=== PATIENT | female | born 1935 | race Caucasian/White ===

== ENCOUNTER 2018-03-02 09:11 | Observation (INO) ==
[2018-03-02] MEDS ORDERED: IOPAMIDOL 100 ML BOTTLE IV ONE (09:12)
[2018-03-02 10:20] LABS: Basophils # (Auto) 0 K/mcL (0.0-0.3); Basophils % (Auto) 0.4 % (0.0-2.0); Eosinophils # (Auto) 0.2 K/mcL (0.0-0.7); Eosinophils % (Auto) 2.7 % (0.0-7.0); Granulocytes % (Auto) 72.7 % (38.0-78.0); Lymphocytes # (Auto) 1.3 K/mcL (1.5-4.8); Lymphocytes % (Auto) 17.1 % (15.5-49.0); Mean Cell Volume 90.2 fL (80.0-100.0); Mean Corpuscular HGB Conc 33.5 g/dL (31.0-36.0); Mean Corpuscular Hemoglobin 30.2 pg (26.0-34.0); Monocytes # (Auto) 0.5 K/mcL (0.1-0.9); Monocytes % (Auto) 7.1 % (1.0-12.0); Platelet Count 204 K/mcL (140-440); RBC 4.11 M/mcL (4.00-5.20); Red Cell Distribution Width 13.8 % (11.5-14.5)
[2018-03-02] MEDS ORDERED: NITROFURANTOIN SR 100 MG CAPSULE PO ONE (10:25)
[2018-03-02 10:40] LABS: ALT/SGPT 14 U/l (0-40); Albumin 3.9 gm/dL (3.2-5.2); Albumin/Globulin Ratio 1.3 (1.0-2.3); Alkaline Phosphatase 60 U/L (39-117); Amylase 44 U/L (28-100); Blood Urea Nitrogen 10 mg/dl (8-23); C-Reactive Protein 5.7 mg/dl (0.0-0.8); Lipase 26 U/L (7-60)
[2018-03-02 11:01] LABS: Appearance,Urine HAZY; Bacteria,Urine FEW /hpf (0); Bilirubin,Urine NEG (NEG); Color,Urine YELLOW; Glucose,Urine (UA) NEGATIVE (NEG); Leukocyte Esterase,Urine 75 /uL (NEG); Mucus,Urine MOD /hpf (0); Protein,Urine NEG (NEG); Specific Gravity,Urine 1.013 (1.000-1.035); Urine Blood NEG mg/dL (<0.03); Urine RBC < 1 /hpf (0-1); Urine Squamous Epithelial Cell < 1 /hpf (0-4); Urine Transitional Epi Cells < 1 /hpf (0-2); Urine WBC 1 /hpf (0-4); Urobilinogen,Urine NEG (NEG)
--- NOTE | 2018-03-02 12:01 | Cat Scan Report ---
CLINICAL INFORMATION: Lower abdominal pain COMPARISON: 06/02/2011 TECHNIQUE: Following enteric contrast, 80 cc of Isovue-300 were injected intravenously, and 60 seconds later, 0.625 mm helical slices were obtained from the mid heart through the subtrochanteric regions. Following reconstruction, 2.5 mm sagittal, coronal and axial reformatted images were processed and reviewed at bone, lung and soft tissue windows. Five minutes later, 0.625 mm helical slices were obtained from the mid heart through the kidneys and viewed at soft tissue windows.The exam was performed using radiation dose optimization techniques including, but not limited to, automated exposure control, adjustment of the mA and/or kV according to patient size and use of iterative reconstruction technique. FINDINGS: Lung bases show mild scattered fibrotic change which has progressed from previous study. No effusion. The visualized heart is mildly enlarged. Small hiatal hernia noted Images should the abdomen show liver to be unremarkable. Gallbladder is surgically absent. Common bile duct is slightly dilated - 8 mm both post cholecystectomy state. It is unchanged. The pancreas, both kidneys, adrenal glands, and spleen are normal. Aorta is normal in contour and caliber with scattered atherosclerotic plaque. Aortic branches demonstrate scattered plaque, but no definite stenoses. No free air, free fluid or adenopathy. Images reviewed the pelvis show urinary bladder to be normal. Sternotomy/nephrectomy changes are noted. There is moderate diverticulitis involving the distal one half of the sigmoid colon. In this region, there is moderate wall thickening inflamed diverticuli and phlegmon in the adjacent perisigmoid fat. No abscess, fistula or other complication. The remaining colon small bowel and stomach are grossly normal. Appendectomy changes acknowledged. Bone windows show degenerative changes in lumbar spine IMPRESSION: 1. Moderate diverticulitis involving the distal one half of the sigmoid colon. No abscess, fistula or other complication. 2. Mild dilatation of the common bile duct compatible with post cholecystomy state - stable 3. Mild interstitial fibrosis in the lung bases suggesting remote history of infection or aspiration. This has progressed. No acute disease evident 4. small hiatal hernia Interpreted and Authenticated by: Darrell Blackwell 03/02/18
--- NOTE | 2018-03-02 12:25 | Emergency Department Note ---
Abdominal Pain HPI - General Chief Complaint: Abdominal Pain Stated Complaint: abdominal pain Time Seen by Provider: 03/02/18 09:39 Source: patient Mode of arrival: ambulatory Limitations: no limitations - History of Present Illness HPI Narrative: The patient is an 82-year-old female who presents today with a 2 day history of abdominal pain. She reports that she is also started to have jellylike stools that began yesterday. She's had decreased appetite and energy level. She denies any nausea or vomiting. Reports that she seen traces of blood in her stool and states that she's had a least 10 episodes of this jellylike substance. She does have a history of diverticulitis but states that it doesn' t feel like that. Denies any fevers states that she always has chills. Rates the pain as a 9 out of 10 on the pain scale. Reports that she does have some discomfort when is going to the bathroom. Denies any dysuria specifically.She had blood work done yesterday at [facility] but has not had the results back. - Related Data Home Medications Medication Instructions Recorded Confirmed [place] TOPICAL PRN 06/08/17 02/20/18 aspirin 81 mg tablet,delayed 81 mg PO QDAY 06/08/17 02/20/18 release azelastine 137 mcg (0.1 %) nasal 2 spray INTRANASAL QDAY ml 06/08/17 02/20/18 spray aerosol blood sugar diagnostic strips See Dose Instructions .ROUTE 06/08/17 02/20/18 .MEDSUPPLY #20 each blood-glucose meter kit See Dose Instructions .ROUTE 06/08/17 02/20/18 .MEDSUPPLY #1 each carbidopa 10 mg-levodopa 100 mg 1 tab PO QDAY tab 06/08/17 02/20/18 tablet carboxymethylcellulose sodium 0.5 1 drp OPHTHALMIC QID PRN ml 06/08/17 02/20/18 % eye drops cetirizine 10 mg tablet 10 mg PO QHS tab 06/08/17 02/20/18 cholecalciferol (vitamin D3) 2,000 2,000 unit PO QDAY cap 06/08/17 02/20/18 unit capsule diclofenac 1 % topical gel 2 g TOPICAL .Q4-6H PRN g 06/08/17 02/20/18 docusate sodium PO QDAY 06/08/17 02/20/18 enalapril maleate 5 mg tablet 5 mg PO HS tab 06/08/17 02/20/18 epinephrine 0.3 mg/0.3 mL 0.3 mg IM ONCE 06/08/17 02/20/18 injection, auto-injector fluticasone 110 mcg/actuation HFA 2 puff INHALATION BID 06/08/17 02/20/18 aerosol inhaler hydrocodone 5 mg-acetaminophen 325 1 tab PO Q4H PRN 06/08/17 02/20/18 mg tablet lancets See Dose Instructions .ROUTE 06/08/17 02/20/18 .MEDSUPPLY #50 each magnesium oxide 400 mg tablet 400 mg PO BID tab 06/08/17 02/20/18 miscellaneous medical supply misc See Dose Instructions .ROUTE 06/08/17 02/20/18 .MEDSUPPLY #1 each multivitamin tablet 1 tab PO QDAY 06/08/17 02/20/18 nabumetone 500 mg tablet 500 mg PO BID PRN 06/08/17 02/20/18 nitroglycerin 0.4 mg sublingual 0.4 mg SUBLINGUAL Q5-15M PRN 06/08/17 02/20/18 tablet nystatin 100,000 unit/gram topical 1 applic TOPICAL BID PRN 06/08/17 02/20/18 powder omeprazole 20 mg capsule,delayed 20 mg PO QDAY 06/08/17 02/20/18 release polyethylene glycol 3350 17 17 g PO QHS PRN g 06/08/17 02/20/18 gram/dose oral powder potassium chloride PO BID 06/08/17 02/20/18 Bifidobacterium infantis 4 mg 4 mg PO QDAY 06/14/17 02/20/18 capsule alpha lipoic acid 300 mg capsule 300 mg PO QDAY 06/14/17 02/20/18 gabapentin 100 mg capsule 300 mg PO BID cap 06/14/17 02/20/18 pravastatin 80 mg tablet 40 mg PO QHS tab 08/22/17 02/20/18 spironolactone 25 mg tablet 12.5 mg PO QDAY tab 08/22/17 02/20/18 albuterol sulfate HFA 90 2 puff INHALATION QDAY PRN g 02/20/18 02/20/18 mcg/actuation aerosol inhaler calcium carbonate-vitamin D3 600 1 cap PO BID cap 02/20/18 02/20/18 mg calcium-200 unit capsule omega 4-pkb-uyh-fish oil 1,000 mg cap PO 02/20/18 02/20/18 (120 mg-180 mg) capsule Allergies Allergy/AdvReac Type Severity Reaction Status Date / Time penicillin G Allergy Severe rash Verified 03/02/18 10:46 Sulfa (Sulfonamide Allergy Severe lips Verified 03/02/18 10:46 Antibiotics) swelling Hydromorphone [From Dilaudid] Allergy Intermediate vomitting Verified 03/02/18 10:46 ipratropium [From Atrovent] Allergy Intermediate allergy to Verified 03/02/18 10 :46 nuts lansoprazole [From Prevacid] Allergy Intermediate dyspnea Verified 03/02/18 10: 46 morphine Allergy Intermediate Rash Verified 03/02/18 10:46 ciprofloxacin AdvReac Severe Nausea Verified 03/02/18 10:46 chlorpheniramine AdvReac Intermediate Unknown Verified 03/02/18 10:46 [From Deconamine] isosorbide [From Imdur] AdvReac Intermediate shortness Verified 03/02/18 10:46 of breath loratadine [From Tavist ND] AdvReac Intermediate Difficulty Verified 03/02/18 10 :46 Breathing nifedipine [From Procardia] AdvReac Intermediate Unknown Verified 03/02/18 10:46 ofloxacin [From Ocuflox] AdvReac Intermediate Unknown Verified 03/02/18 10:46 orphenadrine [From Norflex] AdvReac Intermediate Unknown Verified 03/02/18 10:46 pseudoephedrine AdvReac Intermediate Unknown Verified 03/02/18 10:46 [From Deconamine] nuts Allergy Severe swelling Uncoded 02/20/18 09:32 of throat william eye wash AdvReac Severe eyes burned Uncoded 02/20/18 09:32 cardiazen AdvReac Intermediate Unknown Uncoded 02/20/18 09:32 carzide AdvReac Intermediate unknown Uncoded 02/20/18 09:32 celebrez AdvReac Intermediate Unknown Uncoded 02/20/18 09:32 dipridamole AdvReac Intermediate Unknown Uncoded 02/20/18 09:32 triplennamine AdvReac Intermediate unknown Uncoded 02/20/18 09:32 Review of Systems All systems ED: reviewed and negative except as stated. Abdominal Pain PMH - Past Medical History Attestation: Yes: The following information was validated with the patient. Medical history: Reports: arthritis, asthma, cancer (Skin), COPD, CVA, DM (Type II currently on no medications (February 2018).), GERD (With Schatzki's ring), hypertension, obesity, valvular heart disease (Mitral regurg (presumptive; described by pt)), other (Diverticulitis. DENIES PUD.). Denies: coronary artery disease, myocardial infarction, thyroid disease - Social History Smoking status: Never smoker Alcohol use: Reports: None Drug use: Reports: none. Denies: marijuana Physical Exam Limitations: no limitations General appearance: alert Head: atraumatic Eye: Present: normal appearance ENT: normal exam Chest: Present: normal inspection, symmetric chest wall rise Respiratory: Present: normal lung sounds bilaterally Cardiovascular: Present: regular rate, normal rhythm Abdominal: Present: soft, tenderness, normal bowel sounds. Absent: guarding, rebound Abdominal tenderness: Present: diffuse Rectal: Present: normal inspection, normal rectal tone, heme (-) stool. Absent : hemorrhoids Extremities: Present: normal inspection, full ROM Neurological: Present: alert, oriented X3 Psychiatric: Present: normal affect, normal mood Skin: Present: warm, dry Course Course Narrative: The patient presents with abdominal pain. Lab work was ordered and urinalysis obtained. Urinalysis did come back positive for moderate leukocytes. She is describing 9 out of 10 pain but doesn't seem to be in not acute of pain on exam. Due to her history of diverticulitis will get a CT scan to rule out a recurrence. Stool guaiac was negative - Reevaluation(s) Reevaluation #1: Reevaluated the patient. States that the pain is [address] came back showing moderate diverticulitis without abscess or fistula. Due to patient's age, lives alone and comorbidities will admit her to the hospital for IV fluids , antibiotics and pain control. She was started on IV metronidazole and ceftriaxone here. She does have an allergy to penicillins and sulfa Vital Signs Temperature 97.6 F 03/02/18 09:13 Pulse Rate 82 03/02/18 09:13 Respiratory Rate 18 03/02/18 09:13 Blood Pressure 135/84 03/02/18 09:13 Pulse Oximetry (%) 94 03/02/18 09:13 Temperature 97.6 F 03/02/18 09:13 Pulse Rate 82 03/02/18 09:13 Respiratory Rate 18 03/02/18 09:13 Blood Pressure 135/84 03/02/18 09:13 Pulse Oximetry (%) 94 03/02/18 09:13 Abdominal Pain - MDM Narrative Medical decision making narrative: 82-year-old with acute urinary tract infection in the setting of moderate diverticulitis. Decreased oral intake and increased pain. Will admit for IV fluids, antibiotics and pain control - Lab Data Lab results reviewed: Yes I reviewed the patient's lab results. Result diagrams: 03/02/18 09:50 03/02/18 09:50 Lab Results 03/02/18 03/02/18 03/02/18 Range/Units 09:50 09:50 10:06 WBC 7.8 (4.5-11.0) K/mcL RBC 4.11 (4.00-5.20) M/mcL Hgb 12.4 (12.0-15.0) g/dL Hct 37.1 (36.0-48.0) % POC Hct 37.0 (36.0-48.0) % MCV 90.2 (80.0-100.0) fL MCH 30.2 (26.0-34.0) pg MCHC 33.5 (31.0-36.0) g/dL RDW 13.8 (11.5-14.5) % Plt Count 204 (140-440) K/mcL MPV 8.5 (7.4-10.4) fL Gran % 72.7 (38.0-78.0) % Lymph % (Auto) 17.1 (15.5-49.0) % [place] % (Auto) 7.1 (1.0-12.0) % Eos % (Auto) 2.7 (0.0-7.0) % Baso % (Auto) 0.4 (0.0-2.0) % Gran # 5.6 (1.8-8.0) K/mcL Lymph # (Auto) 1.3 L (1.5-4.8) K/mcL [place] # (Auto) 0.5 (0.1-0.9) K/mcL Eos # (Auto) 0.2 (0.0-0.7) K/mcL Baso # (Auto) 0 (0.0-0.3) K/mcL POC Sodium 138 (133-145) mmol/L Sodium 138 (133-145) mmol/L POC Potassium 4.3 (3.3-5.1) mmol/L Potassium 4.5 (3.3-5.1) mmol/L POC Chloride 102 (96-108) mmol/L Chloride 101 (96-108) mmol/L Carbon Dioxide 26 (22-30) mmol/L POC Total CO2 25 (22-30) mmol/L Anion Gap 11.0 (8-16) POC BUN 11 (8-23) mg/dl BUN 10 (8-23) mg/dl Creatinine 0.7 (0.6-1.1) mg/dl POC Creatinine 0.6 (0.6-1.1) mg/dl GFR Calculation 81 Glucose 107 H (70-105) mg/dL POC Glucose 107 H (70-105) mg/dL Calcium 9.7 (8.6-10.4) mg/dl POC WB Ioniz Calcium 1.15 L (1.16-1.32) mmol/L Total Bilirubin 0.5 (0.0-1.0) mg/dL AST 21 (0-37) U/l ALT 14 (0-40) U/l Alkaline Phosphatase 60 (39-117) U/L C-Reactive Protein 5.7 H (0.0-0.8) mg/dl Total Protein 6.8 (5.9-8.4) gm/dL Albumin 3.9 (3.2-5.2) gm/dL Globulin 2.9 (2.2-3.7) gm/dL Albumin/Globulin Ratio 1.3 (1.0-2.3) Amylase 44 (28-100) U/L Lipase 26 (7-60) U/L Urine Color Yellow Urine Appearance Hazy Urine pH 7.0 (5.0-9.0) Ur Specific [place] 1.013 (1.000-1.035) Urine Protein Neg (NEG) mg/dL Urine Glucose (UA) Negative (NEG) mg/dL Urine Ketones Neg (NEG) mg/dL Urine Occult Blood Neg (<0.03) mg/dL Urine Nitrate Neg (NEG) Urine Bilirubin Neg (NEG) mg/dL Urine Urobilinogen Neg (NEG) mg/dL Ur Leukocyte Esterase 75 A (NEG) /uL Urine RBC < 1 (0-1) /hpf Urine WBC 1 (0-4) /hpf Ur Squamous Epith Cells < 1 (0-4) /hpf Ur Transition Epith Cell < 1 (0-2) /hpf Urine Bacteria Few A (0) /hpf Urine Mucus Mod (0) /hpf Ur Culture Indicated? Yes - Radiology Data Radiology results reviewed: Yes I reviewed the patient's radiology results. Disposition Pt seen by IT SUPPORT SPECIALIST/PA only: No Clinical Impression: Diverticulitis, UTI (urinary tract infection) Disposition: Xfer As Inpt ([facility]) Condition: Good Referrals: Raleigh Castro MD [Primary Care Provider] -
[2018-03-02] MEDS ORDERED: metroNIDAZOLE 500 MG/100 ML BAG IV SCH (12:45)
[2018-03-02] MEDS ORDERED: cefTRIAXone 2 GM VIAL IV SCH (12:45)
[2018-03-02] MEDS ORDERED: 0.9 % SODIUM CHLORIDE 1,000 ML IV SCH (13:15)
[2018-03-02] MEDS ORDERED: NITROGLYCERIN 0.4 MG TAB.SUBL SL PRN (15:57)
[2018-03-02] MEDS ORDERED: ACETAMINOPHEN 325 MG TABLET PO PRN (15:57)
[2018-03-02] MEDS ORDERED: ALBUTEROL SULFATE 2.5 MG/3 ML NEBULIZER NEB PRN (15:57)
[2018-03-02] MEDS ORDERED: ONDANSETRON 4 MG/2 ML VIAL IV PRN (15:57)
--- NOTE | 2018-03-02 19:29 | Internal Med History&Physical ---
Medical - H&P: HPI Patient information: Note initiated : 03/02/18 at 7:27 pm Service Date, if different from initiated Date: [] Patient: Manisha Lynch a 82 y/o F admitted on 03/02/18 for abdominal pain. Chief Complaint: [] History of present illness: Ms. Lynch is a 82 year old F with h/o diverticulitis int he past presents to the ER with complaints of abdominal pain from this Monday pain located in lower abdomen, severe intermittent to constant in nature, waxing and waning, non radiating, associated with stools, which are jelly like, mixed with some mucous? and specks of blood. The patient symptoms progressively worsened over the last 3 days and she was advised to come to the ER for further evaluation. The patient notes increased fatigue and some chills denies any other complaints. chr joint pains, chr headaches present. The patient in the ER was hemodynamically stable, afebrile, normal hb, wbc, chemistry, ua some leuk esterase. CT abdomen pelvis shows diverticuitis, no abscess Pt admitted to hospital for further management h/o colonic polyps, notes non cancerous no FH of colon cancer. All systems: reviewed and no additional remarkable complaints except as stated ( as per HPI rest negative.) Medical - H&P: PMH Medical history: Medical History (Last Reviewed 02/20/18 @ 10:03 by MEI Hairston) Phlebitis and thrombophlebitis of superficial vessels of right lower extremity ( Chronic) Obstructive sleep apnea (Chronic) COPD (chronic obstructive pulmonary disease) (Chronic) Acute diverticulitis (Chronic) Sleep-related hypoventilation (Chronic) Schatzki's ring (Chronic) Hiatal hernia (Chronic) History of constipation (Chronic) Duodenal papillary stenosis (Chronic) Allergy to bee sting (Chronic) Hyperplastic colon polyp (Chronic) Right knee meniscal tear (Chronic ~07/2004) GERD (gastroesophageal reflux disease) (Chronic) 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) Hypertension (Chronic) Diabetes mellitus (Chronic) Asthma (Chronic) Skin cancer (Chronic) Stroke (Chronic) Surgical history: Past Surgical History (Last Reviewed 02/20/18 @ 10:03 by MEI Hairston) History of appendectomy (Chronic) History of cholecystectomy (Chronic) History of colonoscopy (Chronic 08/23/07) History of esophagogastroduodenoscopy (EGD) (Chronic 03/23/17) History of left knee replacement (Chronic) History of tonsillectomy (Chronic) History of total hysterectomy (Chronic ~1969) History of total right knee replacement (Chronic ~12/2005) History of ventral hernia repair (Chronic ~04/2003) Family history: reviewed and not pertinent Pertinent family history: Family History (Last Reviewed 02/20/18 @ 10:03 by MEI Hairston) Other No pertinent family history Medical - H&P: Meds Home Medications Medication Instructions Recorded Confirmed Type aspirin 81 mg tablet,delayed 81 mg PO QDAY 06/08/17 03/02/18 History release azelastine 137 mcg (0.1 %) nasal 2 spray INTRANASAL QDAY ml 06/08/17 03/02/18 History spray aerosol carbidopa 10 mg-levodopa 100 mg 1 tab PO QDAY tab 06/08/17 03/02/18 History tablet carboxymethylcellulose sodium 0.5 1 drp OPHTHALMIC QID PRN ml 06/08/17 History % eye drops cetirizine 10 mg tablet 10 mg PO QHS tab 06/08/17 03/02/18 History cholecalciferol (vitamin D3) 2,000 2,000 unit PO QDAY cap 06/08/17 03/02/18 History unit capsule diclofenac 1 % topical gel 2 g TOPICAL Q4-6HP PRN g 06/08/17 03/02/18 History docusate sodium 300 mg PO QDAY 06/08/17 03/02/18 History enalapril maleate 5 mg tablet 5 mg PO HS tab 06/08/17 03/02/18 History epinephrine 0.3 mg/0.3 mL 0.3 mg IM PRN PRN 06/08/17 03/02/18 History injection, auto-injector fluticasone 110 mcg/actuation HFA 2 puff INHALATION BID 06/08/17 03/02/18 History aerosol inhaler hydrocodone 5 mg-acetaminophen 325 1 tab PO Q4HP PRN 06/08/17 03/02/18 History mg tablet magnesium oxide 400 mg tablet 400 mg PO BID tab 06/08/17 03/02/18 History multivitamin tablet 1 tab PO QDAY 06/08/17 03/02/18 History nabumetone 500 mg tablet 500 mg PO BIDP PRN 06/08/17 03/02/18 History nitroglycerin 0.4 mg sublingual 0.4 mg SUBLINGUAL Q5-15M PRN 06/08/17 03/02/18 History tablet nystatin 100,000 unit/gram topical 1 applic TOPICAL BIDP PRN 06/08/17 03/02/18 History powder omeprazole 20 mg capsule,delayed 20 mg PO QDAY 06/08/17 03/02/18 History release polyethylene glycol 3350 17 17 g PO QHS PRN g 06/08/17 03/02/18 History gram/dose oral powder Bifidobacterium infantis 4 mg 4 mg PO QDAY 06/14/17 03/02/18 History capsule alpha lipoic acid 300 mg capsule 300 mg PO QDAY 06/14/17 03/02/18 History gabapentin 100 mg capsule 300 mg PO BID cap 06/14/17 03/02/18 History pravastatin 80 mg tablet 40 mg PO QHS tab 08/22/17 03/02/18 History spironolactone 25 mg tablet 12.5 mg PO QDAY tab 08/22/17 03/02/18 History albuterol sulfate HFA 90 2 puff INHALATION QDAY PRN g 02/20/18 03/02/18 History mcg/actuation aerosol inhaler calcium carbonate-vitamin D3 600 1 cap PO BID cap 02/20/18 03/02/18 History mg calcium-200 unit capsule omega 1-pvt-mfp-fish oil 1,000 mg 1 cap PO DAILY 02/20/18 03/02/18 History (120 mg-180 mg) capsule Allergies Allergy/AdvReac Type Severity Reaction Status Date / Time penicillin G Allergy Severe rash Verified 03/02/18 10:46 Sulfa (Sulfonamide Allergy Severe lips Verified 03/02/18 10:46 Antibiotics) swelling Hydromorphone [From Dilaudid] Allergy Intermediate vomitting Verified 03/02/18 10:46 ipratropium [From Atrovent] Allergy Intermediate allergy to Verified 03/02/18 10 :46 nuts lansoprazole [From Prevacid] Allergy Intermediate dyspnea Verified 03/02/18 10: 46 morphine Allergy Intermediate Rash Verified 03/02/18 10:46 ciprofloxacin AdvReac Severe Nausea Verified 03/02/18 10:46 chlorpheniramine AdvReac Intermediate Unknown Verified 03/02/18 10:46 [From Deconamine] isosorbide [From Imdur] AdvReac Intermediate shortness Verified 03/02/18 10:46 of breath loratadine [From Tavist ND] AdvReac Intermediate Difficulty Verified 03/02/18 10 :46 Breathing nifedipine [From Procardia] AdvReac Intermediate Unknown Verified 03/02/18 10:46 ofloxacin [From Ocuflox] AdvReac Intermediate Unknown Verified 03/02/18 10:46 orphenadrine [From Norflex] AdvReac Intermediate Unknown Verified 03/02/18 10:46 pseudoephedrine AdvReac Intermediate Unknown Verified 03/02/18 10:46 [From Deconamine] nuts Allergy Severe swelling Uncoded 02/20/18 09:32 of throat william eye wash AdvReac Severe eyes burned Uncoded 02/20/18 09:32 cardiazen AdvReac Intermediate Unknown Uncoded 02/20/18 09:32 carzide AdvReac Intermediate unknown Uncoded 02/20/18 09:32 celebrez AdvReac Intermediate Unknown Uncoded 02/20/18 09:32 dipridamole AdvReac Intermediate Unknown Uncoded 02/20/18 09:32 triplennamine AdvReac Intermediate unknown Uncoded 02/20/18 09:32 Medical - H&P: Exam - Constitutional Vitals: Temp Pulse Resp BP Pulse Ox 98.2 F 82 20 156/84 97 03/02/18 16:00 03/02/18 09:13 03/02/18 16:00 03/02/18 16:00 03/02/18 16:00 Exam: GENERAL: The patient is a well-developed, well-nourished in no apparent distress. Is alert and oriented x3. VITAL SIGNS: Reviewed and as noted elsewhere. HEENT: Head is normocephalic and atraumatic. Extraocular muscles are intact. Pupils are equal, round, and reactive to light. Nares appeared normal. Mouth appears any without lesions. Mucous membranes are moist. NECK: Normal to inspection, Supple, No lymphadenopathy or thyromegaly. LUNGS: Air entry equal on both sides, no wheezing, crackles or rhonchi noted. No accessory muscles of respiration HEART: Regular rate and rhythm normal, S1 and S2 heard, no Gallop, S3 or Rub Noted, No Gross murmur heard. ABDOMEN: Soft, significant tenderness in the hypogastric region, bowel tones present, no rigidity, EXTREMITIES: No cyanosis, clubbing, rash, lesions or edema. NEUROLOGIC: Cranial nerves II through XII are grossly intact. Motor and Sensory System Grossly Intact PSYCHIATRIC: Normal affect, Normal Mood. Appropriate Behavior. SKIN: No ulceration or wounds noted, No jaundice, No rash noted. Medical - H&P: Reslt - Labs CBC & Chem 7: 03/02/18 09:50 03/02/18 09:50 Labs: Short CBC 03/02/18 Range/Units 09:50 WBC 7.8 (4.5-11.0) K/mcL Hgb 12.4 (12.0-15.0) g/dL Hct 37.1 (36.0-48.0) % Plt Count 204 (140-440) K/mcL BMP 03/02/18 09:50 Sodium 138 Potassium 4.5 Chloride 101 Carbon Dioxide 26 BUN 10 Creatinine 0.7 Glucose 107 H Calcium 9.7 Liver Function 03/02/18 Range/Units 09:50 Total Bilirubin 0.5 (0.0-1.0) mg/dL AST 21 (0-37) U/l ALT 14 (0-40) U/l Alkaline Phosphatase 60 (39-117) U/L Albumin 3.9 (3.2-5.2) gm/dL Urine 03/02/18 Range/Units 10:06 Urine Color Yellow Urine Appearance Hazy Urine pH 7.0 (5.0-9.0) Ur Specific [place] 1.013 (1.000-1.035) Urine Protein Neg (NEG) mg/dL Urine Glucose (UA) Negative (NEG) mg/dL Medical - H&P: A/P - Narrative A/P Narrative: A/P Acute Diverticulitis COPD chr stable, HTN h/o CVA h/o DM NEEL Plan Admit to med surgy liquid diet IV rocephin and flagyl for now advance diet as tolerated Surgery to consult if patient clinically worsens resume home meds as appropriate prob list mentions DM, glucose well controlled for now, not on any DM meds DVT hep sq Diet liquid Full code Social History - Exercise physical activity: none - Tobacco smoking status: Never smoker - Alcohol alcohol intake frequency: does not drink - Substance use substance use type: does not use
[2018-03-02] MEDS: HYDROcodone/APAP 5/325MG TABLET PO PRN (19:36)
[2018-03-02] MEDS: HEPARIN 5,000 UNIT/ML VIAL SQ SCH (20:03)
[2018-03-02] MEDS: MAGNESIUM OXIDE 400 MG TABLET PO SCH (20:03)
[2018-03-02] MEDS: CALCIUM W/VIT D3 500 MG TABLET PO SCH (20:03)
[2018-03-02] MEDS: SIMVASTATIN 20 MG TABLET PO SCH (20:03)
[2018-03-02] MEDS: GABAPENTIN 300 MG CAPSULE PO SCH (20:03)
[2018-03-02] MEDS: CETIRIZINE 10 MG TABLET PO SCH (20:03)
[2018-03-02] MEDS: FLUTICASONE HFA 110MCG INHALER INH SCH (22:21)
[2018-03-02] MEDS: metroNIDAZOLE 500 MG/100 ML BAG IV SCH (22:21)
[2018-03-02] MEDS: 0.9 % SODIUM CHLORIDE 1,000 ML IV SCH (23:48)
[2018-03-02] MEDS: 0.9 % SODIUM CHLORIDE 10 ML SYRINGE IV SCH (23:48)
[2018-03-03] MEDS: 0.9 % SODIUM CHLORIDE 1,000 ML IV SCH ×2 (01:20→13:38)
[2018-03-03] MEDS: HYDROcodone/APAP 5/325MG TABLET PO PRN ×3 (02:13→21:09)
[2018-03-03] MEDS: metroNIDAZOLE 500 MG/100 ML BAG IV SCH ×3 (05:26→21:24)
[2018-03-03 05:35] LABS: Basophils # (Auto) 0 K/mcL (0.0-0.3); Basophils % (Auto) 0.7 % (0.0-2.0); Eosinophils # (Auto) 0.3 K/mcL (0.0-0.7); Eosinophils % (Auto) 7.5 % (0.0-7.0); Granulocytes % (Auto) 48.1 % (38.0-78.0); Lymphocytes # (Auto) 1.6 K/mcL (1.5-4.8); Lymphocytes % (Auto) 35.2 % (15.5-49.0); Mean Cell Volume 90.8 fL (80.0-100.0); Mean Corpuscular HGB Conc 33.9 g/dL (31.0-36.0); Mean Corpuscular Hemoglobin 30.8 pg (26.0-34.0); Monocytes # (Auto) 0.4 K/mcL (0.1-0.9); Monocytes % (Auto) 8.5 % (1.0-12.0); Platelet Count 199 K/mcL (140-440); Red Cell Distribution Width 13.4 % (11.5-14.5)
[2018-03-03] MEDS: 0.9 % SODIUM CHLORIDE 10 ML SYRINGE IV SCH ×3 (05:57→21:26)
[2018-03-03 06:10] LABS: ALT/SGPT 13 U/l (0-40); Albumin 3.3 gm/dL (3.2-5.2); Albumin/Globulin Ratio 1.3 (1.0-2.3); Alkaline Phosphatase 53 U/L (39-117); Bilirubin,Direct < 0.2 mg/dL (0.0-0.3); Blood Urea Nitrogen 8 mg/dl (8-23); Gamma Glutamyl Transpeptidase 11 U/L (5-36); Uric Acid 3.9 mg/dL (2.5-8.0)
[2018-03-03] MEDS: OMEPRAZOLE 20 MG CAPSULE PO SCH (07:14)
[2018-03-03] MEDS ORDERED: diphenhydrAMINE 50 MG/ML VIAL IV ONE (08:26)
[2018-03-03] MEDS ORDERED: methylPREDNISolone SOD SUCC 125 MG/2 ML VIAL IV ONE (08:27)
[2018-03-03] MEDS ORDERED: diphenhydrAMINE 50 MG/ML VIAL ONE (08:34)
[2018-03-03] MEDS ORDERED: ALBUTEROL SULFATE 2.5 MG/3 ML NEBULIZER NEB ONE (09:03)
--- NOTE | 2018-03-03 09:30 | XRay Report ---
CLINICAL INFORMATION: Dyspnea COMPARISON: 11/07/2017 FINDINGS: Moderate cardiomegaly has increased slightly. Mediastinum is unremarkable. Upper lobe pulmonary vessels are mildly distended and there is equivocal interstitial edema. Minor bibasilar airspace disease likely represent atelectasis. IMPRESSION: Mild CHF or volume overload. Interpreted and Authenticated by: Darrell Blackwell 03/03/18
[2018-03-03] MEDS: LISINOPRIL 5 MG TABLET PO SCH (09:42)
[2018-03-03] MEDS: SPIRONOLACTONE 25 MG TABLET PO SCH (09:42)
[2018-03-03] MEDS: MAGNESIUM OXIDE 400 MG TABLET PO SCH ×2 (09:42→21:07)
[2018-03-03] MEDS: CARBIDOPA/LEVODOPA 10/100 TABLET PO SCH (09:42)
[2018-03-03] MEDS: GABAPENTIN 300 MG CAPSULE PO SCH ×2 (09:42→21:07)
[2018-03-03] MEDS: CALCIUM W/VIT D3 500 MG TABLET PO SCH ×2 (09:42→21:08)
[2018-03-03] MEDS: HEPARIN 5,000 UNIT/ML VIAL SQ SCH ×2 (09:43→21:08)
[2018-03-03] MEDS: ASPIRIN 81 MG TAB.CHEW PO SCH (09:47)
[2018-03-03] MEDS: cefTRIAXone 2 GM VIAL IV SCH (12:58)
[2018-03-03] MEDS ORDERED: diphenhydrAMINE 50 MG/ML VIAL IV PRN (13:10)
--- NOTE | 2018-03-03 13:13 | Internal Med Progress Note ---
Medical - PN: Subj Patient information: Note initiated : 03/03/18 at 1:10 pm Service Date, if different from initiated Date: [] Patient: Manisha Lynch a 82 y/o F admitted on 03/02/18 for abdominal pain. Chief Complaint: [] Interval history: Ms. Lynch is a 82 year old F with h/o diverticulitis int he past presents to the ER with complaints of abdominal pain from this Monday pain located in lower abdomen, severe intermittent to constant in nature, waxing and waning, non radiating, associated with stools, which are jelly like, mixed with some mucous? and specks of blood. The patient symptoms progressively worsened over the last 3 days and she was advised to come to the ER for further evaluation. The patient notes increased fatigue and some chills denies any other complaints. chr joint pains, chr headaches present. The patient in the ER was hemodynamically stable, afebrile, normal hb, wbc, chemistry, ua some leuk esterase. CT abdomen pelvis shows diverticuitis, no abscess Pt admitted to hospital for further management h/o colonic polyps, notes non cancerous no FH of colon cancer. 03/03 Pt seen examined, this AM was doing well, she had breakfast and suddently felt sick, as if had no energy, short of breath, closing in her chest. Similar feeling as if she had eaten nut, the patient was very concerned. IV benadryl and IV solumedrol 125mg give. pt exam was unremarkable, hemodynamically stable, no wheeze, no stridor, no swelling of oropharygeal mucosa. Pt improved and was back to normal soon. feels some contaminant in breakfast may have caused the symptoms. She still has some abdominal pain, but much better, labs otherwise are stable Pertinent ROS: Denies headache, dizziness Denies chest pain, palpitations, Denies cough , present in AM shortness of breath present abdominal pain, no nausea or vomiting. - Constitutional Vitals: Vital Signs Temp Pulse Resp BP Pulse Ox 97.5 F 93 H 14 138/80 92 03/03/18 12:16 03/03/18 12:16 03/03/18 12:16 03/03/18 12:16 03/03/18 12:16 Period Temp Pulse Resp BP Sys/[place] Pulse Ox Last 24 Hr 97.2 F-98.2 F 58-93 14-24 138-173/67-85 92-100 Intake and Output 03/02/18 03/03/18 03/03/18 21:59 05:59 13:59 Intake Total 460 / 460 500 / 500 800 / 800 Output Total 875 / 875 850 / 850 1000 / 1000 Balance -415 / -415 -350 / -350 -200 / -200 Weight 214 lb 214 lb Patient Weight 03/04/18 05:59 Weight 214 lb Intake & Output: Intake & Output 03/02/18 03/03/18 03/03/18 21:59 05:59 13:59 Intake Total 460 / 460 500 / 500 800 / 800 Output Total 875 / 875 850 / 850 1000 / 1000 Balance -415 / -415 -350 / -350 -200 / -200 Weight 214 lb 214 lb Intake: IV 100 / 100 100 / 100 Oral 360 / 360 400 / 400 800 / 800 Output: Void Amount 875 / 875 850 / 850 1000 / 1000 Other: Meal Dinner Lunch Percent of Meal Consumed 25% 50% Feeding Ability Independent Exam: Constitutional; Afebrile, cooperative, alert, not in distress. Eyes- No icterus, , No periorbital swelling Ears- Ext ear normal, hearing normal to conversation. Neck- Midline trachea, supple Respiratory system: Air Entry equal on both sides, No crackles or wheezing, no rhonchi. CVS- Rate rhythm regular, S1,S2 heard, no gallop, no rub. 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 Medical - PN: Obj Da - Labs CBC & Chem 7: 03/03/18 04:30 03/03/18 04:30 Labs: Abnormal Lab Results 03/03/18 03/03/18 03/02/18 04:30 04:30 10:06 WBC 4.4 L RBC 3.80 L Hgb 11.7 L Hct 34.5 L Eos % (Auto) 7.5 H Lymph # (Auto) Anion Gap 7.0 L Glucose 120 H POC Glucose POC WB Ioniz Calcium C-Reactive Protein Ur Leukocyte Esterase 75 A Urine Bacteria Few A 03/02/18 03/02/18 09:50 09:50 WBC RBC Hgb Hct Eos % (Auto) Lymph # (Auto) 1.3 L Anion Gap Glucose 107 H POC Glucose 107 H POC WB Ioniz Calcium 1.15 L C-Reactive Protein 5.7 H Ur Leukocyte Esterase Urine Bacteria Meds: Medications Acetaminophen (Tylenol) 650 mg PO Q6HP PRN PRN Reason: PAIN/FEVER > 101 Hydrocodone Bitart/Acetaminophen ([place] 5/325mg) 1 tab PO Q4HP PRN PRN Reason: Pain Last Admin: 03/03/18 12:57 Dose: 1 tab Albuterol Sulfate (Ventolin) 2.5 mg NEB Q2HP PRN PRN Reason: Shortness Of Breath Last Admin: 03/03/18 09:00 Dose: 2.5 mg Aspirin (Aspirin) 81 mg PO DAILY [facility] Last Admin: 03/03/18 09:47 Dose: 81 mg Calcium/Vitamin D (Calcium W/Vit D3) 500 mg PO BID [facility] Last Admin: 03/03/18 09:42 Dose: 500 mg Carbidopa/Levodopa (Sinemet 10/100) 1 tab PO QDAY [facility] Last Admin: 03/03/18 09:42 Dose: 1 tab Ceftriaxone Sodium (Rocephin) 2 gm IV Q24H [facility] Last Admin: 03/03/18 12:58 Dose: 2 gm Cetirizine HCl (Zyrtec) 10 mg PO QHS [facility] Last Admin: 03/02/18 20:03 Dose: 10 mg Fluticasone Propionate (Flovent Hfa 110mcg) 2 puff INH BID [facility] Last Admin: 03/02/18 22:21 Dose: Not Given Gabapentin (Neurontin) 300 mg PO BID [facility] Last Admin: 03/03/18 09:42 Dose: 300 mg Heparin Sodium (Porcine) (Heparin) 5,000 unit SQ Q12 [facility] Last Admin: 03/03/18 09:43 Dose: 5,000 unit Metronidazole (Flagyl) 500 mg in 100 mls @ 100 mls/hr IV Q8H [facility] Last Admin: 03/03/18 05:26 Dose: 100 mls/hr Sodium Chloride (Sodium Chloride 0.9%) 1,000 mls @ 100 mls/hr IV .Q10H [facility] Last Admin: 03/03/18 01:20 Dose: 100 mls/hr Lisinopril (Zestril) 5 mg PO DAILY [facility] Last Admin: 03/03/18 09:42 Dose: 5 mg Magnesium Oxide (Magnesium Oxide) 400 mg PO BID [facility] Last Admin: 03/03/18 09:42 Dose: 400 mg Nitroglycerin (Nitrostat) 0.4 mg SL Q5M PRN PRN Reason: Angina Omeprazole (Prilosec) 20 mg PO QAMAC [facility] Last Admin: 03/03/18 07:14 Dose: 20 mg Ondansetron HCl (Zofran) 4 mg IV Q6HP PRN PRN Reason: Nausea And Vomiting Azelastine Hcl [ Azelastine Hcl] Nasal [place] 2 dose INH QDAY [facility] Carboxymethylcellulo se Sodium [Refresh Tears] Eye Drops 1 dose OU QIDP PRN PRN Reason: Dry Eyes Simvastatin (Zocor) 20 mg PO HS [facility] Last Admin: 03/02/18 20:03 Dose: 20 mg Sodium Chloride (Saline Flush) 10 ml IV Q8 [facility] Last Admin: 03/03/18 05:57 Dose: Not Given Spironolactone (Aldactone) 12.5 mg PO QDAY [facility] Last Admin: 03/03/18 09:42 Dose: 12.5 mg Medical - PN: A/P - Time Spent With Patient Total time spent is greater than 50% in coordination of care (as documented) at patient's floor/unit and/or counseling patient: - Narrative A/P Narrative: A/P Acute Diverticulitis COPD chr stable, HTN h/o CVA h/o DM NEEL 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
[2018-03-03] MEDS: FLUTICASONE HFA 110MCG INHALER INH SCH ×2 (14:08→21:13)
[2018-03-03] MEDS: SIMVASTATIN 20 MG TABLET PO SCH (21:07)
[2018-03-03] MEDS: CETIRIZINE 10 MG TABLET PO SCH (21:08)
[2018-03-04] MEDS: 0.9 % SODIUM CHLORIDE 1,000 ML IV SCH ×3 (00:10→08:34)
[2018-03-04] MEDS: metroNIDAZOLE 500 MG/100 ML BAG IV SCH ×2 (05:14→13:39)
[2018-03-04] MEDS: 0.9 % SODIUM CHLORIDE 10 ML SYRINGE IV SCH ×2 (05:17→13:39)
[2018-03-04] MEDS: OMEPRAZOLE 20 MG CAPSULE PO SCH (06:57)
[2018-03-04 07:16] LABS: Basophils # (Auto) 0 K/mcL (0.0-0.3); Basophils % (Auto) 0 % (0.0-2.0); Eosinophils # (Auto) 0 K/mcL (0.0-0.7); Eosinophils % (Auto) 0 % (0.0-7.0); Granulocytes % (Auto) 87.7 % (38.0-78.0); Lymphocytes # (Auto) 0.7 K/mcL (1.5-4.8); Lymphocytes % (Auto) 7.2 % (15.5-49.0); Mean Cell Volume 91.5 fL (80.0-100.0); Mean Corpuscular Hemoglobin 30.2 pg (26.0-34.0); Monocytes # (Auto) 0.5 K/mcL (0.1-0.9); Monocytes % (Auto) 5.1 % (1.0-12.0); Platelet Count 213 K/mcL (140-440); RBC 3.78 M/mcL (4.00-5.20); Red Cell Distribution Width 13.4 % (11.5-14.5)
[2018-03-04 08:03] LABS: ALT/SGPT 12 U/l (0-40); Albumin 3.4 gm/dL (3.2-5.2); Albumin/Globulin Ratio 1.4 (1.0-2.3); Alkaline Phosphatase 54 U/L (39-117); Bilirubin,Direct < 0.2 mg/dL (0.0-0.3); Blood Urea Nitrogen 12 mg/dl (8-23); Gamma Glutamyl Transpeptidase 12 U/L (5-36)
[2018-03-04] MEDS: CALCIUM W/VIT D3 500 MG TABLET PO SCH (08:35)
[2018-03-04] MEDS: LISINOPRIL 5 MG TABLET PO SCH (08:35)
[2018-03-04] MEDS: SPIRONOLACTONE 25 MG TABLET PO SCH (08:35)
[2018-03-04] MEDS: MAGNESIUM OXIDE 400 MG TABLET PO SCH (08:35)
[2018-03-04] MEDS: CARBIDOPA/LEVODOPA 10/100 TABLET PO SCH (08:35)
[2018-03-04] MEDS: GABAPENTIN 300 MG CAPSULE PO SCH (08:35)
[2018-03-04] MEDS: ASPIRIN 81 MG TAB.CHEW PO SCH (08:35)
[2018-03-04] MEDS: FLUTICASONE HFA 110MCG INHALER INH SCH (08:36)
[2018-03-04] MEDS: HEPARIN 5,000 UNIT/ML VIAL SQ SCH (08:36)
[2018-03-04] MEDS: cefTRIAXone 2 GM VIAL IV SCH (12:08)
--- NOTE | 2018-03-04 12:11 | Discharge Summary ---
Medical - DS: Prov Patient information: Note initiated : 03/04/18 at 12:06 pm Service Date, if different from initiated Date: [] Patient: Manisha Lynch 82 y/o F admitted on 03/02/18 for Abdominal Pain/ Diverticulitis. Chief Complaint: [] Date of admission: 03/02/18 15:48 Discharge date: 03/04/18 Primary care physician: Raleigh Castro Admitting clinician: Jose Sepulveda Consults: 03/02/18 12:40 Consult to Physician [CONS] Stat Comment: Consulting Provider: Jose Sepulveda Reason For Exam: Physician to Consult Discharging clinician: Jose Sepulveda Medical - DS: Meds - Discharge Medications Prescriptions: Cefdinir 300 mg PO BID #10 cap metroNIDAZOLE [Metronidazole] 500 mg PO TID #15 tab Active and Home Medications: Home Medications aspirin 81 mg tablet,delayed release 81 mg PO QDAY 06/08/17 [History Confirmed 03/02/18 Last Taken Unknown] azelastine 137 mcg (0.1 %) nasal spray aerosol 2 spray INTRANASAL QDAY ml 06/08 [History Confirmed 03/02/18 Last Taken Unknown] carbidopa 10 mg-levodopa 100 mg tablet 1 tab PO QDAY tab 06/08/17 [History Confirmed 03/02/18 Last Taken Unknown] carboxymethylcellulose sodium 0.5 % eye drops 1 drp OPHTHALMIC QID PRN ml 06/08 [History Confirmed 03/02/18 Last Taken Unknown] cetirizine 10 mg tablet 10 mg PO QHS tab 06/08/17 [History Confirmed 03/02/18 Last Taken Unknown] cholecalciferol (vitamin D3) 2,000 unit capsule 2,000 unit PO QDAY cap [History Confirmed 03/02/18 Last Taken Unknown] diclofenac 1 % topical gel 2 g TOPICAL Q4-6HP PRN g 06/08/17 [History Confirmed 03/02/18 Last Taken Unknown] docusate sodium 300 mg PO QDAY 06/08/17 [History Confirmed 03/02/18 Last Taken Unknown] enalapril maleate 5 mg tablet 5 mg PO HS tab 06/08/17 [History Confirmed Last Taken Unknown] epinephrine 0.3 mg/0.3 mL injection, auto-injector 0.3 mg IM PRN PRN 06/08/17 [ History Confirmed 03/02/18 Last Taken Unknown] fluticasone 110 mcg/actuation HFA aerosol inhaler 2 puff INHALATION BID [History Confirmed 03/02/18 Last Taken Unknown] hydrocodone 5 mg-acetaminophen 325 mg tablet 1 tab PO Q4HP PRN 06/08/17 [ History Confirmed 03/02/18 Last Taken Unknown] magnesium oxide 400 mg tablet 400 mg PO BID tab 06/08/17 [History Confirmed Last Taken Unknown] multivitamin tablet 1 tab PO QDAY 06/08/17 [History Confirmed 03/02/18 Last Taken Unknown] nabumetone 500 mg tablet 500 mg PO BIDP PRN 06/08/17 [History Confirmed Last Taken Unknown] nitroglycerin 0.4 mg sublingual tablet 0.4 mg SUBLINGUAL Q5-15M PRN 06/08/17 [ History Confirmed 03/02/18 Last Taken Unknown] nystatin 100,000 unit/gram topical powder 1 applic TOPICAL BIDP PRN 06/08/17 [ History Confirmed 03/02/18 Last Taken Unknown] omeprazole 20 mg capsule,delayed release 20 mg PO QDAY 06/08/17 [History Confirmed 03/02/18 Last Taken Unknown] polyethylene glycol 3350 17 gram/dose oral powder 17 g PO QHS PRN g 06/08/17 [ History Confirmed 03/02/18 Last Taken Unknown] Bifidobacterium infantis 4 mg capsule 4 mg PO QDAY 06/14/17 [History Confirmed 03/02/18 Last Taken Unknown] alpha lipoic acid 300 mg capsule 300 mg PO QDAY 06/14/17 [History Confirmed Last Taken Unknown] gabapentin 100 mg capsule 300 mg PO BID cap 06/14/17 [History Confirmed Last Taken Unknown] pravastatin 80 mg tablet 40 mg PO QHS tab 08/22/17 [History Confirmed 03/02/18 Last Taken Unknown] spironolactone 25 mg tablet 12.5 mg PO QDAY tab 08/22/17 [History Confirmed Last Taken Unknown] albuterol sulfate HFA 90 mcg/actuation aerosol inhaler 2 puff INHALATION QDAY PRN g 02/20/18 [History Confirmed 03/02/18 Last Taken Unknown] calcium carbonate-vitamin D3 600 mg calcium-200 unit capsule 1 cap PO BID cap 02/20/18 [History Confirmed 03/02/18 Last Taken Unknown] omega 5-ych-rjr-fish oil 1,000 mg (120 mg-180 mg) capsule 1 cap PO DAILY [History Confirmed 03/02/18 Last Taken Unknown] Medical - DS: Hosp Hospital course: Ms. Lynch is a 82 year old F with h/o diverticulitis int he past presented to the ER with complaints of abdominal pain from this Monday pain located in lower abdomen, severe intermittent to constant in nature, waxing and waning, non radiating, associated with stools, which are jelly like, mixed with some mucous? and specks of blood. The patient symptoms progressively worsened over the last 3 days and she was advised to come to the ER for further evaluation. The patient in the ER was hemodynamically stable, afebrile, normal hb, wbc, chemistry, ua some leuk esterase. CT abdomen pelvis shows diverticuitis, no abscess Pt admitted to hospital for further management h/o colonic polyps, notes non cancerous no FH of colon cancer. Diverticulitis- Uncomplicated, treated with bowel rest, IV antibiotics, responded to treatment, Patient resumed oral diet, while in the hospital was able to tolerate same well. her lab work was stable. She will be discharged home with oral cefdinir (tolerated rocephin well) and oral flagyl for another 5 days. She is advised to follow up with PCP and get referral to GI for colonoscopy in 4 -6 weeks for further evaluation. Discharge diagnosis: Diverticulitis - Time Spent with Patient Total time spent providing and/or coordinating discharge services: Greater than 30 minutes Medical - DS: Exam - Constitutional Vitals: Vital Signs Temp Pulse Resp BP BP Pulse Ox 03/04/18 11:24 97.6 F 77 20 144/75 96 03/04/18 06:47 97.7 F 69 16 138/61 96 03/04/18 04:00 97.5 F 85 18 104/56 94 03/03/18 23:42 97.3 F 67 18 109/48 93 03/03/18 19:28 97.4 F 62 18 113/68 92 03/03/18 18:44 96 03/03/18 15:45 97.6 F 78 18 135/62 93 03/03/18 12:16 97.5 F 93 H 14 138/80 92 Intake and Output 03/03/18 03/04/18 03/04/18 21:59 05:59 13:59 Intake Total 600 / 600 2140 / 2140 500 / 500 Output Total 800 / 800 550 / 550 750 / 750 Balance -200 / -200 1590 / 1590 -250 / -250 Intake: IV 100 / 100 1100 / 1100 Sodium Chloride 0.9% 1,000 ml @ 1000 / 1000 100 mls/hr IV .Q10H [facility] Rx#: [id number] Oral 500 / 500 1040 / 1040 500 / 500 Output: Void Amount 800 / 800 550 / 550 750 / 750 Other: Meal Dinner Breakfast Percent of Meal Consumed 75% 100% Stool Size Moderate Stool Color Brown Stool Consistency Soft Formed # Bowel Movements 1 Weight 219 lb 8 oz Additional comments: Constitutional; Afebrile, cooperative, alert, not in distress. Eyes- No icterus, , No periorbital swelling Ears- Ext ear normal, hearing normal to conversation. Neck- Midline trachea, supple Respiratory system: Air Entry equal on both sides, No crackles or wheezing, no rhonchi. CVS- Rate rhythm regular, S1,S2 heard, no gallop, no rub. Abdomen- Soft nontender abdomen, no organomegaly, no tenderness, no guarding or rigidity, SALES ORDER ADMINISTRATOR- AOOx3, moving all extremities, no gross focal deficit noted. Medical - DS: Data Labs on day of discharge: Labs from last 24 hours 03/04/18 03/04/18 05:08 05:08 WBC 9.5 RBC 3.78 L Hgb 11.4 L Hct 34.6 L MCV 91.5 MCH 30.2 MCHC 33.0 RDW 13.4 Plt Count 213 MPV 8.9 Gran % 87.7 H Lymph % (Auto) 7.2 L [place] % (Auto) 5.1 Eos % (Auto) 0 Baso % (Auto) 0 Gran # 8.4 H Lymph # (Auto) 0.7 L [place] # (Auto) 0.5 Eos # (Auto) 0 Baso # (Auto) 0 Sodium 139 Potassium 3.9 Chloride 104 Carbon Dioxide 22 Anion Gap 13.0 BUN 12 Creatinine 0.6 GFR Calculation 85 Glucose 138 H Uric Acid 3.0 Calcium 8.8 Phosphorus 2.7 Magnesium 2.0 Total Bilirubin 0.2 Direct Bilirubin < 0.2 GGT 12 AST 18 ALT 12 Alkaline Phosphatase 54 Lactate Dehydrogenase 219 Total Protein 5.8 L Albumin 3.4 Globulin 2.4 Albumin/Globulin Ratio 1.4 Triglycerides 28 Preliminary micro results at discharge 03/03/18 08:27 Stool Culture - Preliminary Stool Medical - DS: A/P - Patient/Caregiver Discharge Instructions Activity: increase activity as tolerated Diet: Low Fiber Additional Instructions: Please take medications as prescribed I have prescribed 2 new medications, Cefdinir 300mg twice daily for 5 days, and Metronidazole 500mg three times a day for 5 days. I have not made any changes to your old home medications. Please take all your medications as prescribed by your providers. Go to the ER if worsening condition, abdominal pain, fever or any other acute concerns. - Follow up Plan Follow up with: Raleigh Castro MD [Primary Care Provider] - Disposition: Home, Self-Care Prognosis: Fair Rehab Potential: Fair I certify that the patient requires SNF services: No Overall status at discharge: patient is progressing back to baseline
== END 2018-03-04 15:20 | disposition home or self-care (01) ==
LOC: ED 09:11 → INTOOBSV 15:48 → MEDSUR 15:48
PROVIDERS: ADMIT Internal Medicine; ATTEND Internal Medicine

== ENCOUNTER 2021-02-23 08:56 | Observation (INO) ==
[2021-02-23] MEDS ORDERED: IOPAMIDOL 100 ML BOTTLE IV ONE (08:57)
--- NOTE | 2021-02-23 09:11 | Emergency Department Note ---
Neuro HPI General Chief Complaint: Stroke Symptoms Stated Complaint: stroke symptoms, speech difficulty, facial droop, Time Seen by Provider: 02/23/21 08:59 Source: patient and family Mode of arrival: wheelchair Limitations: no limitations History of Present Illness HPI Narrative: 85-year-old female presents by private vehicle with her son with chief complaint possible stroke. Patient was seen last normal yesterday afternoon by the son who is here at the bedside. This is an states the patient lives by herself. This morning son received a call from the patient called the 6 with speech and told him that she had difficulty moving her right arm and right leg. The son then went to the patient's home and along with the inventory analyst recommended the patient come to the hospital for evaluation. The patient is still having some word finding difficulty speech is very slow. She does not have a facial droop at this time. Denies any recent fevers chills or chest pain. She does complain of a right-sided headache. She has not taken any anticoagulants except for aspirin. No prior history of stroke. Review of recor ds does show prior history of TIA. On Anticoagulants: No Related Data Home Medications Medication Instructions Recorded Confirmed carboxymethylcellulose sodium 0.5 1 drp OPHTHALMIC QID PRN ml 06/08/17 02/23/21 % eye drops docusate sodium [Colace] 300 mg PO QDAY 06/08/17 02/23/21 epinephrine 0.3 mg/0.3 mL 0.3 mg IM PRN PRN 06/08/17 02/23/21 injection, auto-injector multivitamin 1 tab PO QDAY 06/08/17 02/23/21 polyethylene glycol 3350 17 17 g PO QHS PRN g 06/08/17 02/23/21 gram/dose oral powder Bifidobacterium infantis 4 mg 4 mg PO QDAY 06/14/17 02/23/21 capsule alpha lipoic acid 300 mg capsule 300 mg PO QDAY 06/14/17 02/23/21 calcium carbonate-vitamin D3 600 1 cap PO BID cap 02/20/18 02/23/21 mg calcium-200 unit capsule omega [id number] oil 1,000 mg 1 cap PO DAILY 02/20/18 02/23/21 (120 mg-180 mg) capsule cholecalciferol (vitamin D3) 50 2,000 unit PO QDAY 06/24/19 02/23/21 mcg (2,000 unit) capsule apple cidar vinegar pills 1,200 mg PO DAILY 08/13/19 02/23/21 nitroglycerin 0.6 mg/hr 1 patch TRANSDERMAL Q24H ea 12/09/20 02/23/21 transdermal 24 hour patch diclofenac sodium 1 % topical gel 2 g TOPICAL QID 12/18/20 02/23/21 furosemide 20 mg tablet 20 mg PO DAILY tab 02/18/21 02/23/21 Adult Probiotic 1 cap PO DAILY 02/23/21 02/23/21 Miralax 1 dose PO PRN PRN 02/23/21 02/23/21 aspirin 81 mg PO DAILY 02/23/21 02/23/21 Previous Rx's Medication Instructions Recorded nystatin 100,000 unit/gram topical 1 applic TOPICAL BIDP PRN #60 g 08/20/19 powder gabapentin 100 mg capsule See Rx Instructions PO BID #270 cap 03/04/20 Diabetic shoes with inserts #1 ea 03/19/20 blood sugar diagnostic #100 each 04/21/20 lancets #100 each 04/21/20 fluticasone propionate 110 2 puff INHALATION BID #36 g 05/18/20 mcg/actuation HFA aerosol inhaler hydrocodone 5 mg-acetaminophen 325 1 tab PO Q6H PRN #120 tab 05/18/20 mg tablet spironolactone 25 mg tablet 12.5 mg PO QDAY #90 tab 05/18/20 albuterol sulfate 90 mcg/actuation 2 puff INHALATION QDAY PRN #18 g 09/01/20 aerosol inhaler magnesium oxide 400 mg (241.3 mg 400 mg PO BID #180 tab 10/28/20 magnesium) tablet sertraline 25 mg tablet 25 mg PO .Q Hs #90 tab 01/06/21 omeprazole 20 mg capsule,delayed 20 mg PO BID #180 cap 01/18/21 release ranolazine 500 mg tablet,extended 500 mg PO BID #60 tab 01/18/21 release,12 hr potassium chloride 40 mEq/15 mL See Rx Instructions .ROUTE 02/16/21 oral liquid .COMPLEX #473 ml enalapril maleate 5 mg tablet 5 mg PO HS #90 tab 02/18/21 Allergies Allergy/AdvReac Type Severity Reaction Status Date / Time Sulfa (Sulfonamide Allergy Severe lips Verified 02/23/21 09:03 Antibiotics) swelling ipratropium [From Atrovent] Allergy Intermediate allergy to Verified 02/23/21 09:03 nuts morphine Allergy Mild Rash Verified 02/23/21 13:03 penicillin G Allergy Mild rash Verified 02/23/21 13:03 chlorpheniramine Allergy Unknown Unknown Verified 02/23/21 13:03 [From Deconamine] nifedipine [From Procardia] Allergy Unknown Unknown Verified 02/23/21 13:03 ofloxacin [From Ocuflox] Allergy Unknown Unknown Verified 02/23/21 13:03 orphenadrine [From Norflex] Allergy Unknown Unknown Verified 02/23/21 13:03 pseudoephedrine Allergy Unknown Unknown Verified 02/23/21 13:03 [From Deconamine] isosorbide [From Imdur] AdvReac Intermediate shortness Verified 02/23/21 09:03 of breath lansoprazole [From Prevacid] AdvReac Intermediate dyspnea Verified 02/23/21 13:03 loratadine [From Tavist ND] AdvReac Intermediate Difficulty Verified 02/23/21 09:03 Breathing ciprofloxacin AdvReac Mild Nausea Verified 02/23/21 13:03 hydromorphone [From Dilaudid] AdvReac Mild vomitting Verified 02/23/21 13:03 nuts Allergy Severe swelling Uncoded 01/06/21 09:20 of throat cardiazen Allergy Unknown Unknown Uncoded 02/23/21 13:03 carzide Allergy Unknown unknown Uncoded 02/23/21 13:03 celebrez Allergy Unknown Unknown Uncoded 02/23/21 13:03 dipridamole Allergy Unknown Unknown Uncoded 02/23/21 13:03 triplennamine Allergy Unknown unknown Uncoded 02/23/21 13:03 william eye wash AdvReac Severe eyes burned Uncoded 01/06/21 09:20 Review of Systems ROS ROS Narrative: Narrative: All systems ED: reviewed and negative except as stated. Constitutional: Denies fever, chills and sweats Eyes: Denies vision change ENT ED: Denies throat pain and congestion Cardiovascular: Denies chest pain Respiratory: Denies shortness of breath and cough Gastrointestinal: Denies abdominal pain, vomiting and diarrhea Musculoskeletal: Denies back pain and joint pain Integumentary: Denies rash Neurological: Reports as per HPI, headache, weakness and confusion Psychiatric: Denies anxiety, suicidal thoughts and homicidal thoughts Endocrine: Denies polydipsia and polyuria Hematological/Lymphatic: Denies easy bleeding and easy bruising PFSH Narrative Patient History Narrative: Narrative: Medical/Surgical/Family History All Active Problems (Updated 02/23/21 @ 11:11 by Albert Branch MD) Wrist pain, left (Acute) 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) Diabetes mellitus (Chronic) Hypertension (Chronic) Radiculopathy of lumbar region (Acute) History of surgery (Chronic) Callus of foot (Chronic) Nocturnal hypoxemia (Chronic) Costochondral chest pain (Chronic) Aortic stenosis, moderate (Chronic) Encounter for Health Maintenance Examination in Adult (Chronic) Right anterior knee pain (Chronic) CHF (congestive heart failure) (Chronic) TIA (transient ischemic attack) (Chronic) Peanut allergy (Chronic) Adult onset diabetes mellitus with ketoacidosis (Chronic) CAD (coronary artery disease) (Chronic) Aortic insufficiency (Chronic) Obesity (BMI 35.0-39.9 without comorbidity) (Chronic) Degenerative joint disease of left hip (Chronic) Esophageal atresia (Chronic) Actinic keratosis (Chronic) Dyspnea (Chronic) Hearing loss (Chronic) Chronic low back pain (Chronic) Herpes zoster (Chronic) Arthritis of left knee (Chronic) Hyperlipidemia (Chronic) Cervical muscle strain (Chronic) Obstruction of bile duct (Chronic) Fibromyalgia (Chronic) Bilateral shoulder pain (Chronic) Traumatic arthropathy, right knee (Chronic) Diabetic neuropathy (Chronic) Allergic rhinitis (Chronic) Headache (Chronic) Degenerative disc disease, thoracic (Chronic) Mitral regurgitation (Chronic) Degenerative disc disease, lumbar (Chronic) Degenerative disc disease, cervical (Chronic) Arthritis of right hip (Chronic) Restless leg syndrome (Chronic) Esophageal stricture (Chronic) Diverticulosis of colon without hemorrhage (Chronic) Other myositis, unspecified thigh (Chronic) Other rodent exterminator (current) drug therapy (Chronic) Hypothyroidism (Chronic) Paroxysmal atrial fibrillation (Chronic) Abdominal wall hernia (Chronic) PVC (premature ventricular contraction) (Chronic) UTI (urinary tract infection) (Chronic) Orthostatic hypotension (Chronic) Contusion (Chronic) Fall from slip, trip, or stumble (Chronic) Diverticulitis (Chronic) Allergic reaction (Chronic) Fall (Chronic) Asthma (Chronic) Phlebitis and thrombophlebitis of superficial vessels of right lower extremity (Chronic) Obstructive sleep apnea (Chronic) COPD (chronic obstructive pulmonary disease) (Chronic) Acute diverticulitis (Chronic) Sleep-related hypoventilation (Chronic) Schatzki's ring (Chronic) Hiatal hernia (Chronic) History of constipation (Chronic) Duodenal papillary stenosis (Chronic) Allergy to bee sting (Chronic) Hyperplastic colon polyp (Chronic) Right knee meniscal tear (Chronic ~07/2004) GERD (gastroesophageal reflux disease) (Chronic) 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) Medical History Abdominal wall hernia Actinic keratosis Acute diverticulitis Adult onset diabetes mellitus with ketoacidosis Allergic rhinitis due to pollen Allergy to bee sting Aortic insufficiency Arthritis of left knee Arthritis of right hip Asthma Bilateral shoulder pain CAD (coronary artery disease) Cervical muscle strain Chronic low back pain COPD (chronic obstructive pulmonary disease) Degenerative disc disease, cervical Degenerative disc disease, lumbar with myelopathy Degenerative disc disease, thoracic Degenerative joint disease (DJD) of hip Degenerative joint disease of left hip Diabetes mellitus Diabetic neuropathy Diverticulosis of colon without hemorrhage Duodenal papillary stenosis Dyspnea Esophageal atresia Esophageal stricture Fibromyalgia GERD (gastroesophageal reflux disease) Headache Hearing loss Herpes zoster Hiatal hernia History of constipation Hyperlipidemia Hyperplastic colon polyp Hypertension Hypothyroidism Mitral regurgitation Nocturnal hypoxemia Obesity (BMI 35.0-39.9 without comorbidity) Obstruction of bile duct Obstructive sleep apnea Other rodent exterminator (current) drug therapy I did review with the patient and daughter current medication regimen and techniques for improved compliance The patient is also provided instructions to prevent fall risk precaution Continue COVID-19 precautions Recommend decrease sodium intake in her nutrition plan Other myositis, unspecified thigh Paroxysmal atrial fibrillation Peanut allergy Phlebitis and thrombophlebitis of superficial vessels of right lower extremity Restless leg syndrome Right knee meniscal tear (~07/2004) Schatzki's ring Skin cancer Sleep-related hypoventilation Stroke TIA (transient ischemic attack) Traumatic arthropathy, right knee Wrist pain, left Surgical History History of appendectomy History of cholecystectomy History of colonoscopy (04/2018) Dr. Slater History of esophagogastroduodenoscopy (EGD) (03/23/17) History of left knee replacement History of surgery LESI #2 L3-4 w/o sed 02/11/20 LESI #1 L5-S1 w/sed 12/12/19 TF LUIS ARMANDO #3 Rt. L5-S1 w/o sed 08/21/2019 TF LUIS ARMANDO #2 Rt. L5-S1 w/o sed 05/29/2019 TF LUIS ARMANDO #1 Rt. L5-S1 w/o sed 02/19/2019 TF LUIS ARMANDO #3 Rt. L5-S1 w/o sed 11/26/2018 TF LUIS ARMANDO #2 Rt. L5-S1 w/o sed 09/17/2018 TF LUIS ARMANDO #1 Rt L5-S1 w/o sed 07/16/18 TF LUIS ARMANDO #3 rt L5-S1 w/o sed 03/12/18 TF LUIS ARMANDO #2 L5-S1, right w/o sed 01/15/2018 LESI #1 L5-S1 w/o sed 12/25/17 History of tonsillectomy History of total hysterectomy (~1969) History of total right knee replacement (~12/2005) History of ventral hernia repair (~04/2003) Family History Other No pertinent family history Social History Smoking Status: Never smoker Alcohol Intake Frequency: does not drink Substance Use: does not use Exam Narrative Narrative: Vital Signs reviewed. Constitutional: Awake alert no acute distress well-nourished well-developed Head: Normocephalic, atraumatic Eyes: PERRLA, EOMI, no conjunctivitis Ear: Normal canals and TM's Oropharynx: moist oral mucosa, no edema, no erythema, no exudate Neck: Supple, no lymphadenopathy, no JVD Lungs: Breathing unlabored, lungs clear Cardiac: Regular rate and rhythm, normal distal pulses, GI: Soft nontender nondistended no guarding no rebound Musculoskeletal: No tenderness, no deformities, no edema, full range of motion Back: no CVA or midline tenderness Neuro: Awake alert, cranial nerves II through XII grossly intact, patient is slow to answer questions speech is clear. Oriented to her age and her and the month. Moves all extremities. No obvious focal deficit at this time. NIH stroke scale equals 2 for drift on right upper and right lower extremity. Psychiatric: Normal mood and affect Skin: Warm dry no rash, cap refill less than 2 seconds General Limitations: no limitations Course Reevaluation(s) Reevaluation #1: Is awake alert speech is clear she moving her right arm right leg normally now. Is back to baseline patient states symptoms have completely resolved. Son was at the bedside agrees symptoms are completely resolved patient is back to normal. Discussed symptoms and results in the ED findings that are concerning for a TIA and I recommended observation in the hospital and patient is agreeable Time: 10:10 Consultations Consultation #1: Case discussed with hospitalist, who agrees to observe patient for further evaluation and treatment of this TIA. Time: 11:22 Vital Signs Vital signs: Vital Signs Temperature 97.5 F 02/23/21 08:57 Pulse Rate 78 02/23/21 08:57 Respiratory Rate 20 02/23/21 08:57 Blood Pressure 179/65 02/23/21 08:57 Pulse Oximetry (%) 95 02/23/21 08:57 Temperature 97.1 F 02/23/21 12:55 Pulse Rate 78 02/23/21 08:57 Respiratory Rate 14 02/23/21 12:55 Blood Pressure 205/83 02/23/21 12:55 Pulse Oximetry (%) 97 02/23/21 12:55 [facility] MDM Narrative Medical decision making narrative: 85-year-old female last seen normal yesterday afternoon presented with some difficulty with speech right arm and right leg weakness this morning. CT brain without contrast CTA brain and CTA neck showed no significant findings. Symptoms have all completely resolved. Presentation consistent with TIA. Patient be admitted for further evaluation and treatment. Differential Diagnosis Differential Diagnosis: Stroke, TIA, metabolic derangement, UTI Lab Data Result diagrams: 02/23/21 09:13 02/23/21 09:12 Labs: Lab Results 02/23/21 02/23/21 02/23/21 Range/Units 09:12 09:12 09:13 WBC 5.0 (4.5-11.0) K/mcL RBC 4.34 (4.00-5.20) M/mcL Hgb 12.9 (12.0-15.0) g/dL Hct 40.0 (36.0-48.0) % MCV 92.2 (80.0-100.0) fL MCH 29.7 (26.0-34.0) pg MCHC 32.3 (31.0-36.0) g/dL RDW 13.2 (11.5-14.5) % Plt Count 237 (140-440) K/mcL MPV 9.7 (7.4-10.4) fL Neut % (Auto) 57.7 (38.0-78.0) % Lymph % (Auto) 28.9 (15.0-49.0) % [place] % (Auto) 7.2 (1.0-12.0) % Eos % (Auto) 5.4 (0.0-7.0) % Baso % (Auto) 0.8 (0.0-2.0) % Lymph # (Auto) 1.45 L (1.50-4.80) K/mcL [place] # (Auto) 0.36 (0.10-0.90) K/mcL Eos # (Auto) 0.27 (0.00-0.70) K/mcL Baso # (Auto) 0.04 (0.00-0.20) K/mcL Absolute Neutrophils 2.89 (1.80-8.00) K/mcL POC PT (11.9-14.5) sec PT (11.9-14.5) sec POC INR (0.8-1.2) INR (0.9-1.1) APTT (20.0-37.0) sec Sodium 134 (133-145) mmol/L Potassium 4.4 (3.3-5.1) mmol/L Chloride 101 (96-108) mmol/L Carbon Dioxide 24 (22-30) mmol/L Anion Gap 9.0 (8.0-16.0) BUN 12 (8-23) mg/dL Creatinine 0.7 (0.6-1.1) mg/dL POC Creatinine 0.8 (0.6-1.2) mg/dL GFR Calculation 79 Glucose 117 H (70-105) mg/dL Calcium 9.0 (8.6-10.4) mg/dL Total Bilirubin 0.4 (0.1-1.0) mg/dL AST 23 (<32) U/L ALT 13 (<40) U/L Alkaline Phosphatase 80 (39-117) U/L Troponin T < 0.01 (<0.03) ng/mL Total Protein 6.7 (5.9-8.4) gm/dL Albumin 3.9 (3.2-5.2) gm/dL Globulin 2.8 (2.2-3.7) gm/dL Albumin/Globulin Ratio 1.4 (1.0-2.3) Urine Color Urine Appearance (Clear) Urine pH (5.0-9.0) Ur Specific [place] (1.000-1.035) Urine Protein (Negative) mg/dL Urine Glucose (UA) (Negative) mg/dL Urine Ketones (Negative) mg/dL Urine Occult Blood (Negative) mg/dL Urine Nitrate (Negative) Urine Bilirubin (Negative) mg/dL Urine Urobilinogen mg/dL Ur Leukocyte Esterase (Negative) /ug Ur Culture Indicated? 02/23/21 02/23/21 Range/Units 09:13 10:46 WBC (4.5-11.0) K/mcL RBC (4.00-5.20) M/mcL Hgb (12.0-15.0) g/dL Hct (36.0-48.0) % MCV (80.0-100.0) fL MCH (26.0-34.0) pg MCHC (31.0-36.0) g/dL RDW (11.5-14.5) % Plt Count (140-440) K/mcL MPV (7.4-10.4) fL Neut % (Auto) (38.0-78.0) % Lymph % (Auto) (15.0-49.0) % [place] % (Auto) (1.0-12.0) % Eos % (Auto) (0.0-7.0) % Baso % (Auto) (0.0-2.0) % Lymph # (Auto) (1.50-4.80) K/mcL [place] # (Auto) (0.10-0.90) K/mcL Eos # (Auto) (0.00-0.70) K/mcL Baso # (Auto) (0.00-0.20) K/mcL Absolute Neutrophils (1.80-8.00) K/mcL POC PT 12.8 (11.9-14.5) sec PT 12.8 (11.9-14.5) sec POC INR 1.1 (0.8-1.2) INR 0.9 (0.9-1.1) APTT 35.7 (20.0-37.0) sec Sodium (133-145) mmol/L Potassium (3.3-5.1) mmol/L Chloride (96-108) mmol/L Carbon Dioxide (22-30) mmol/L Anion Gap (8.0-16.0) BUN (8-23) mg/dL Creatinine (0.6-1.1) mg/dL POC Creatinine (0.6-1.2) mg/dL GFR Calculation Glucose (70-105) mg/dL Calcium (8.6-10.4) mg/dL Total Bilirubin (0.1-1.0) mg/dL AST (<32) U/L ALT (<40) U/L Alkaline Phosphatase (39-117) U/L Troponin T (<0.03) ng/mL Total Protein (5.9-8.4) gm/dL Albumin (3.2-5.2) gm/dL Globulin (2.2-3.7) gm/dL Albumin/Globulin Ratio (1.0-2.3) Urine Color Straw Urine Appearance Clear (Clear) Urine pH 8.0 (5.0-9.0) Ur Specific [place] 1.015 (1.000-1.035) Urine Protein Negative (Negative) mg/dL Urine Glucose (UA) Negative (Negative) mg/dL Urine Ketones Negative (Negative) mg/dL Urine Occult Blood Negative (Negative) mg/dL Urine Nitrate Negative (Negative) Urine Bilirubin Negative (Negative) mg/dL Urine Urobilinogen Negative mg/dL Ur Leukocyte Esterase Negative (Negative) /ug Ur Culture Indicated? No ED POC Tests ED POC Tests: TATO - Influenza A Negative TATO - Influenza B Negative TATO - SARS Antigen Negative EKG Data EKG #1: EKG attestation: Yes I reviewed and interpreted this EKG. and Yes There are no EKG findings of acute coronary syndrome EKG results narrative: EKG performed at 934 shows sinus rhythm rate of 79 first-degree AV block, infrequent PVC LVH inferior Q waves normal axis Discharge Plan Patient/Caregiver Discharge Instructions Pt seen by BEHAVIOR THERAPIST/PA only: No Clinical Impression: TIA (transient ischemic attack) Activity: increase activity as tolerated Patient Disposition: Xfer As Outpt/Obs ([facility]) Condition: Fair Discharge Date/Time: 02/23/21 13:08
[2021-02-23 09:18] LABS: POC Creatinine 0.8 mg/dL (0.6-1.2)
--- NOTE | 2021-02-23 09:23 | Cat Scan Report ---
History: New stroke symptoms TECHNIQUE: The brain was imaged without contrast in axial plane at 2.5 mm intervals. Sagittal and coronal reformats were created. Radiation exposure was limited using dose reduction technology. FINDINGS: Moderate atrophy is present along the upper convexities of the frontal and parietal lobes bilaterally. There is no evidence of an infarct, hemorrhage, edema or mass effect. The ventricles are normal allowing for atrophy. Comparison with the prior exam from 11/07/17 shows no change. IMPRESSION: Normal age-related degenerative changes and no acute abnormality ER doctor was called with report Interpreted and Authenticated by: Sagar Gonzales 02/23/21
[2021-02-23 09:51] LABS: POC INR 1.1 (0.8-1.2); POC Pro Time 12.8 sec (11.9-14.5)
--- NOTE | 2021-02-23 09:57 | Cat Scan Report ---
History: New stroke symptoms with slurred speech and facial droop TECHNIQUE: Following injection of intravenous nonionic contrast the patient was scanned during the arterial phase from the aortic arch to the top of the head. Sagittal and coronal reformats of the head and neck were created separately along with curvilinear reformatted images of the cervical carotids. The radiation exposure was limited using dose reduction technology. FINDINGS: NECK: A well-circumscribed 11 x 12 mm low-attenuation nodule is present in the left lobe of the thyroid. This is probably benign but could be further evaluated by ultrasound. The aortic arch and great vessels arising from the aorta are normal in caliber. There are couple scattered plaques along the wall of the arch and at the origin of the left subclavian artery. These are not causing stenosis. There is no aortic dissection. A moderate amount of calcified plaque is present in the carotid bifurcations bilaterally. This is causing close to 50% stenosis at the origin of the right internal carotid and less than 40% stenosis at the origin of the left internal carotid. There is mild stenosis at the origins of the external carotids. The midportion of the right internal carotid is very tortuous and deviates behind the hypopharynx. There is no hemodynamically significant stenosis or thrombosis. No dissection is present. The vertebral arteries are normal in caliber nearly symmetric. There is degenerative disc disease and arthritis throughout the neck and upper thoracic spine. No prevertebral soft tissue swelling is present. Head: The petrous and cavernous portions of both internal carotids are normal in caliber. There are scattered plaques in the cavernous portions of both internal carotids which are not causing hemodynamically significant stenoses. The supraclinoid portions of both internal carotids are normal. The anterior and middle cerebral arteries are normal. There is a patent anterior and patent right posterior communicating artery. Left posterior communicating artery is not identified. The vertebrals and basilar artery are normal. Posterior fossa circulation is normal. There is no intracranial thrombosis, stenosis or vascular malformation. No aneurysm is present. There is no enhancing lesion. 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 Normal intracranial arterial circulation Dr. Branch was called with the report Interpreted and Authenticated by: Sagar Gonzales 02/23/21
[2021-02-23 10:12] LABS: Basophils # (Auto) 0.04 K/mcL (0.00-0.20); Basophils % (Auto) 0.8 % (0.0-2.0); Eosinophils # (Auto) 0.27 K/mcL (0.00-0.70); Eosinophils % (Auto) 5.4 % (0.0-7.0); Hemoglobin 12.9 g/dL (12.0-15.0); Lymphocytes # (Auto) 1.45 K/mcL (1.50-4.80); Lymphocytes % (Auto) 28.9 % (15.0-49.0); Mean Cell Volume 92.2 fL (80.0-100.0); Mean Corpuscular HGB Conc 32.3 g/dL (31.0-36.0); Mean Platelet Volume 9.7 fL (7.4-10.4); Monocytes # (Auto) 0.36 K/mcL (0.10-0.90); Monocytes % (Auto) 7.2 % (1.0-12.0); Neutrophils % (Auto) 57.7 % (38.0-78.0); Platelet Count 237 K/mcL (140-440); RBC 4.34 M/mcL (4.00-5.20); Red Cell Distribution Width 13.2 % (11.5-14.5)
[2021-02-23 10:24] LABS: INR 0.9 (0.9-1.1); Partial Thromboplastin Time 35.7 sec (20.0-37.0); Prothrombin Time 12.8 sec (11.9-14.5)
[2021-02-23 10:35] LABS: ALT/SGPT 13 U/L (<40); AST/SGOT 23 U/L (<32); Albumin 3.9 gm/dL (3.2-5.2); Albumin/Globulin Ratio 1.4 (1.0-2.3); Alkaline Phosphatase 80 U/L (39-117); Bilirubin,Total 0.4 mg/dL (0.1-1.0); Blood Urea Nitrogen 12 mg/dL (8-23); Carbon Dioxide 24 mmol/L (22-30); Chloride 101 mmol/L (96-108); Globulin 2.8 gm/dL (2.2-3.7); Glomerular Filtration Rate 79; Glucose 117 mg/dL (70-105)
[2021-02-23 11:56] LABS: Appearance,Urine CLEAR (Clear); Bilirubin,Urine Negative (Negative); Color,Urine STRAW; Culture Indicated,Urine No; Glucose,Urine (UA) Negative (Negative); Ketones,Urine Negative (Negative); Leukocyte Esterase,Urine Negative /ug (Negative); Nitrate,Urine Negative (Negative); Protein,Urine Negative (Negative); Specific Gravity,Urine 1.015 (1.000-1.035); Urine Blood Negative (Negative); Urobilinogen,Urine Negative
--- NOTE | 2021-02-23 11:58 | Internal Med History&Physical ---
HPI History of Present Illness Patient information: Note initiated : 02/23/21 at 11:53 am Service Date, if different from initiated Date: [] Patient: Manisha Lynch a 85 y/o F admitted on for stroke symptoms, speech difficulty, facial droop,. Chief Complaint: [] History of present illness: Ms. Lynch is a 85 year old F Patient presents to the ED with right-sided weakness difficulty expressing herself. Last seen normal yesterday. The time she arrived in the ED she still has some speech problems mild that eventually resolved and her weakness had essentially resolved. And during the ED stay all symptoms had resolved. CTA head neck showed close to 50% on the right carotid but otherwise unremarkable. No recent illnesses. Review of Systems: Pertinent positives as above. Denies headache/fever/chills/nausea/vomiting/chest or abdominal p ain/cough/dyspnea/diarrhea. 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) Diabetes mellitus (Chronic) Hypertension (Chronic) Radiculopathy of lumbar region (Acute) History of surgery (Chronic) Callus of foot (Chronic) Nocturnal hypoxemia (Chronic) Costochondral chest pain (Chronic) Aortic stenosis, moderate (Chronic) Encounter for Health Maintenance Examination in Adult (Chronic) Right anterior knee pain (Chronic) CHF (congestive heart failure) (Chronic) TIA (transient ischemic attack) (Chronic) Peanut allergy (Chronic) Adult onset diabetes mellitus with ketoacidosis (Chronic) CAD (coronary artery disease) (Chronic) Aortic insufficiency (Chronic) Obesity (BMI 35.0-39.9 without comorbidity) (Chronic) Degenerative joint disease of left hip (Chronic) Esophageal atresia (Chronic) Actinic keratosis (Chronic) Dyspnea (Chronic) Hearing loss (Chronic) Chronic low back pain (Chronic) Herpes zoster (Chronic) Arthritis of left knee (Chronic) Hyperlipidemia (Chronic) Cervical muscle strain (Chronic) Obstruction of bile duct (Chronic) Fibromyalgia (Chronic) Bilateral shoulder pain (Chronic) Traumatic arthropathy, right knee (Chronic) Diabetic neuropathy (Chronic) Allergic rhinitis (Chronic) Headache (Chronic) Degenerative disc disease, thoracic (Chronic) Mitral regurgitation (Chronic) Degenerative disc disease, lumbar (Chronic) Degenerative disc disease, cervical (Chronic) Arthritis of right hip (Chronic) Restless leg syndrome (Chronic) Esophageal stricture (Chronic) Diverticulosis of colon without hemorrhage (Chronic) Other myositis, unspecified thigh (Chronic) Other detention (current) drug therapy (Chronic) Hypothyroidism (Chronic) Paroxysmal atrial fibrillation (Chronic) Abdominal wall hernia (Chronic) PVC (premature ventricular contraction) (Chronic) UTI (urinary tract infection) (Chronic) Orthostatic hypotension (Chronic) Contusion (Chronic) Fall from slip, trip, or stumble (Chronic) Diverticulitis (Chronic) Allergic reaction (Chronic) Fall (Chronic) Asthma (Chronic) Phlebitis and thrombophlebitis of superficial vessels of right lower extremity (Chronic) Obstructive sleep apnea (Chronic) COPD (chronic obstructive pulmonary disease) (Chronic) Acute diverticulitis (Chronic) Sleep-related hypoventilation (Chronic) Schatzki's ring (Chronic) Hiatal hernia (Chronic) History of constipation (Chronic) Duodenal papillary stenosis (Chronic) Allergy to bee sting (Chronic) Hyperplastic colon polyp (Chronic) Right knee meniscal tear (Chronic ~07/2004) GERD (gastroesophageal reflux disease) (Chronic) 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) Medical History Abdominal wall hernia Actinic keratosis Acute diverticulitis Adult onset diabetes mellitus with ketoacidosis Allergic rhinitis due to pollen Allergy to bee sting Aortic insufficiency Arthritis of left knee Arthritis of right hip Asthma Bilateral shoulder pain CAD (coronary artery disease) Cervical muscle strain Chronic low back pain COPD (chronic obstructive pulmonary disease) Degenerative disc disease, cervical Degenerative disc disease, lumbar with myelopathy Degenerative disc disease, thoracic Degenerative joint disease (DJD) of hip Degenerative joint disease of left hip Diabetes mellitus Diabetic neuropathy Diverticulosis of colon without hemorrhage Duodenal papillary stenosis Dyspnea Esophageal atresia Esophageal stricture Fibromyalgia GERD (gastroesophageal reflux disease) Headache Hearing loss Herpes zoster Hiatal hernia History of constipation Hyperlipidemia Hyperplastic colon polyp Hypertension Hypothyroidism Mitral regurgitation Nocturnal hypoxemia Obesity (BMI 35.0-39.9 without comorbidity) Obstruction of bile duct Obstructive sleep apnea Other detention (current) drug therapy I did review with the patient and daughter current medication regimen and techniques for improved compliance The patient is also provided instructions to prevent fall risk precaution Continue COVID-19 precautions Recommend decrease sodium intake in her nutrition plan Other myositis, unspecified thigh Paroxysmal atrial fibrillation Peanut allergy Phlebitis and thrombophlebitis of superficial vessels of right lower extremity Restless leg syndrome Right knee meniscal tear (~07/2004) Schatzki's ring Skin cancer Sleep-related hypoventilation Stroke TIA (transient ischemic attack) Traumatic arthropathy, right knee Wrist pain, left Surgical History History of appendectomy History of cholecystectomy History of colonoscopy (04/2018) Dr. Slater History of esophagogastroduodenoscopy (EGD) (03/23/17) History of left knee replacement History of surgery LESI #2 L3-4 w/o sed 02/11/20 LESI #1 L5-S1 w/sed 12/12/19 TF LUIS ARMANDO #3 Rt. L5-S1 w/o sed 08/21/2019 TF LUIS ARMANDO #2 Rt. L5-S1 w/o sed 05/29/2019 TF LUIS ARMANDO #1 Rt. L5-S1 w/o sed 02/19/2019 TF LUIS ARMANDO #3 Rt. L5-S1 w/o sed 11/26/2018 TF LUIS ARMANDO #2 Rt. L5-S1 w/o sed 09/17/2018 TF LUIS ARMANDO #1 Rt L5-S1 w/o sed 07/16/18 TF LUIS ARMANDO #3 rt L5-S1 w/o sed 03/12/18 TF LUIS ARMANDO #2 L5-S1, right w/o sed 01/15/2018 LESI #1 L5-S1 w/o sed 12/25/17 History of tonsillectomy History of total hysterectomy (~1969) History of total right knee replacement (~12/2005) History of ventral hernia repair (~04/2003) Family History Other No pertinent family history Social History marital status: physical activity: none alcohol intake frequency: does not drink substance use type: does not use seatbelt use: always MEDS/ALLERGIES Home Medications and Allergies Home Medications Medication Instructions Recorded Confirmed Type aspirin 81 mg tablet,delayed 81 mg PO QDAY 06/08/17 02/18/21 History release carboxymethylcellulose sodium 0.5 1 drp OPHTHALMIC QID PRN ml 06/08/17 02/18/21 History % eye drops docusate sodium [Colace] 300 mg PO QDAY 06/08/17 02/18/21 History epinephrine 0.3 mg/0.3 mL 0.3 mg IM PRN PRN 06/08/17 02/18/21 History injection, auto-injector multivitamin 1 tab PO QDAY 06/08/17 02/18/21 History polyethylene glycol 3350 17 17 g PO QHS PRN g 06/08/17 02/18/21 History gram/dose oral powder Bifidobacterium infantis 4 mg 4 mg PO QDAY 06/14/17 02/18/21 History capsule alpha lipoic acid 300 mg capsule 300 mg PO QDAY 06/14/17 02/18/21 History calcium carbonate-vitamin D3 600 1 cap PO BID cap 02/20/18 02/18/21 History mg calcium-200 unit capsule omega 1-pmv-ctu-fish oil 1,000 mg 1 cap PO DAILY 02/20/18 02/18/21 History (120 mg-180 mg) capsule cholecalciferol (vitamin D3) 50 2,000 unit PO QDAY 06/24/19 02/18/21 History mcg (2,000 unit) capsule apple cidar vinegar pills PO 08/13/19 02/18/21 History nystatin 100,000 unit/gram topical 1 applic TOPICAL BIDP PRN #60 g 08/20/19 02/18/21 Rx powder gabapentin 100 mg capsule See Rx Instructions PO BID #270 cap 03/04/20 02/18/21 Rx Diabetic shoes with inserts #1 ea 03/19/20 02/18/21 Rx blood sugar diagnostic #100 each 04/21/20 02/18/21 Rx lancets #100 each 04/21/20 02/18/21 Rx fluticasone propionate 110 2 puff INHALATION BID #36 g 05/18/20 02/18/21 Rx mcg/actuation HFA aerosol inhaler hydrocodone 5 mg-acetaminophen 325 1 tab PO Q6H PRN #120 tab 05/18/20 02/18/21 Rx mg tablet spironolactone 25 mg tablet 12.5 mg PO QDAY #90 tab 05/18/20 02/18/21 Rx albuterol sulfate 90 mcg/actuation 2 puff INHALATION QDAY PRN #18 g 09/01/20 02/18/21 Rx aerosol inhaler magnesium oxide 400 mg (241.3 mg 400 mg PO BID #180 tab 10/28/20 02/18/21 Rx magnesium) tablet nitroglycerin 0.6 mg/hr 1 patch TRANSDERMAL Q24H ea 12/09/20 02/18/21 History transdermal 24 hour patch diclofenac sodium 1 % topical gel 2 g TOPICAL QID 12/18/20 02/18/21 History sertraline 25 mg tablet 25 mg PO .Q Hs #90 tab 01/06/21 02/18/21 Rx omeprazole 20 mg capsule,delayed 20 mg PO BID #180 cap 01/18/21 02/18/21 Rx release ranolazine 500 mg tablet,extended 500 mg PO BID #60 tab 01/18/21 02/18/21 Rx release,12 hr potassium chloride 40 mEq/15 mL See Rx Instructions .ROUTE 02/16/21 02/18/21 Rx oral liquid .COMPLEX #473 ml enalapril maleate 5 mg tablet 5 mg PO HS #90 tab 02/18/21 02/18/21 Rx furosemide 20 mg tablet 20 mg PO DAILY tab 02/18/21 History Allergies Allergy/AdvReac Type Severity Reaction Status Date / Time penicillin G Allergy Severe rash Verified 02/23/21 09:03 Sulfa (Sulfonamide Allergy Severe lips Verified 02/23/21 09:03 Antibiotics) swelling hydromorphone [From Dilaudid] Allergy Intermediate vomitting Verified 02/23/21 09:03 ipratropium [From Atrovent] Allergy Intermediate allergy to Verified 02/23/21 09:03 nuts lansoprazole [From Prevacid] Allergy Intermediate dyspnea Verified 02/23/21 09:03 morphine Allergy Intermediate Rash Verified 02/23/21 09:03 ciprofloxacin AdvReac Severe Nausea Verified 02/23/21 09:03 chlorpheniramine AdvReac Intermediate Unknown Verified 02/23/21 09:03 [From Deconamine] isosorbide [From Imdur] AdvReac Intermediate shortness Verified 02/23/21 09:03 of breath loratadine [From Tavist ND] AdvReac Intermediate Difficulty Verified 02/23/21 09:03 Breathing nifedipine [From Procardia] AdvReac Intermediate Unknown Verified 02/23/21 09:03 ofloxacin [From Ocuflox] AdvReac Intermediate Unknown Verified 02/23/21 09:03 orphenadrine [From Norflex] AdvReac Intermediate Unknown Verified 02/23/21 09:03 pseudoephedrine AdvReac Intermediate Unknown Verified 02/23/21 09:03 [From Deconamine] nuts Allergy Severe swelling Uncoded 01/06/21 09:20 of throat william eye wash AdvReac Severe eyes burned Uncoded 01/06/21 09:20 cardiazen AdvReac Intermediate Unknown Uncoded 01/06/21 09:20 carzide AdvReac Intermediate unknown Uncoded 01/06/21 09:20 celebrez AdvReac Intermediate Unknown Uncoded 01/06/21 09:20 dipridamole AdvReac Intermediate Unknown Uncoded 01/06/21 09:20 triplennamine AdvReac Intermediate unknown Uncoded 01/06/21 09:20 EXAM Constitutional Vitals: Temp Pulse Resp BP Pulse Ox 97.5 F 78 20 172/68 96 02/23/21 08:57 02/23/21 08:57 02/23/21 08:57 02/23/21 11:30 02/23/21 09:52 Exam: General: Alert, Awake, No acute Distress Eyes/N/T: EOMI, PERRL, Head/Neck: neck supple, normocephalic atraumatic CV: RRR, No murmurs, normal s1/s2 Pulm: Clear b/l, no wheezing/rhonchi/rales Abd: soft, nontender, +BS x4 Ext: no clubbing/cyanosis/edema Neuro: Alert, no focal deficits, moves all extremities, CN 2-12 grossly intact, symmetrical strength b/l upper/lower, sensations intact b/l upper/lower. Speech clear face symmetrical and no pronator drift Skin: warm/dry DATA Data Completed and Pending Labs: Labs from last 24 hours 02/23/21 02/23/21 02/23/21 10:46 09:13 09:13 WBC 5.0 RBC 4.34 Hgb 12.9 Hct 40.0 MCV 92.2 MCH 29.7 MCHC 32.3 RDW 13.2 Plt Count 237 MPV 9.7 Neut % (Auto) 57.7 Lymph % (Auto) 28.9 [place] % (Auto) 7.2 Eos % (Auto) 5.4 Baso % (Auto) 0.8 Lymph # (Auto) 1.45 L [place] # (Auto) 0.36 Eos # (Auto) 0.27 Baso # (Auto) 0.04 Absolute Neutrophils 2.89 POC PT 12.8 PT 12.8 POC INR 1.1 INR 0.9 APTT 35.7 Sodium Potassium Chloride Carbon Dioxide Anion Gap BUN Creatinine POC Creatinine GFR Calculation Glucose Calcium Total Bilirubin AST ALT Alkaline Phosphatase Troponin T Total Protein Albumin Globulin Albumin/Globulin Ratio Urine Color Pending Urine Appearance Pending Urine pH Pending Ur Specific [place] Pending Urine Protein Pending Urine Glucose (UA) Pending Urine Ketones Pending Urine Occult Blood Pending Urine Nitrate Pending Urine Bilirubin Pending Urine Urobilinogen Pending Ur Leukocyte Esterase Pending 02/23/21 02/23/21 09:12 09:12 WBC RBC Hgb Hct MCV MCH MCHC RDW Plt Count MPV Neut % (Auto) Lymph % (Auto) [place] % (Auto) Eos % (Auto) Baso % (Auto) Lymph # (Auto) [place] # (Auto) Eos # (Auto) Baso # (Auto) Absolute Neutrophils POC PT PT POC INR INR APTT Sodium 134 Potassium 4.4 Chloride 101 Carbon Dioxide 24 Anion Gap 9.0 BUN 12 Creatinine 0.7 POC Creatinine 0.8 GFR Calculation 79 Glucose 117 H Calcium 9.0 Total Bilirubin 0.4 AST 23 ALT 13 Alkaline Phosphatase 80 Troponin T < 0.01 Total Protein 6.7 Albumin 3.9 Globulin 2.8 Albumin/Globulin Ratio 1.4 Urine Color Urine Appearance Urine pH Ur Specific [place] Urine Protein Urine Glucose (UA) Urine Ketones Urine Occult Blood Urine Nitrate Urine Bilirubin Urine Urobilinogen Ur Leukocyte Esterase A/P Narrative A/P Narrative: A: *TIA: -Patient does take aspirin at home -ABCD= 5 *h/o CAD & CHF: *copd: *HTN: *Depression/anxiety: *GERD: *Chronic pain * P: -permissive HTN today -IV hydration -echo pending -neurochecks -a1c -switch ASA to Plavix -start Statin -hold ACEI likely restart in AM, cont other cardiac meds -hold diuretics -pt/ot - -ppx: lovenox Time Spent With Patient Time: Total time spent is greater than 50% in coordination of care (as documented) at patient's floor/unit and/or counseling patient: QUALITY Stroke Symptom Onset Unknown: Yes
[2021-02-23] MEDS ORDERED: CLOPIDOGREL 75 MG TABLET PO SCH (12:00)
--- NOTE | 2021-02-23 12:05 | Discharge Summary ---
Discharge Provider Provider Patient information: Note initiated : 02/23/21 at 12:03 pm Service Date, if different from initiated Date: [] Patient: Manisha Lynch 85 y/o F admitted on for stroke symptoms, speech difficulty, facial droop,. Chief Complaint: [] Discharge date: 02/24/21 Primary care physician: Raleigh Castro MD Consults: 02/23/21 Consult to Physician [CONS] Stat Comment: Consulting Provider: Humble Sutton Reason For Exam: Physician to Consult Discharge Meds Discharge Medications Home Medications carboxymethylcellulose sodium 0.5 % eye drops 1 drp OPHTHALMIC QID PRN ml 06/08/17 [History Confirmed 02/23/21 Last Taken Unknown] docusate sodium [Colace] 300 mg PO QDAY 06/08/17 [History Confirmed 02/23/21 Last Taken Unknown] epinephrine 0.3 mg/0.3 mL injection, auto-injector 0.3 mg IM PRN PRN 06/08/17 [History Confirmed 02/23/21 Last Taken Unknown] multivitamin 1 tab PO QDAY 06/08/17 [History Confirmed 02/23/21 Last Taken Unknown] polyethylene glycol 3350 17 gram/dose oral powder 17 g PO QHS PRN g 06/08/17 [History Confirmed 02/23/21 Last Taken Unknown] Bifidobacterium infantis 4 mg capsule 4 mg PO QDAY 06/14/17 [History Confirmed 02/23/21 Last Taken Unknown] alpha lipoic acid 300 mg capsule 300 mg PO QDAY 06/14/17 [History Confirmed 02/23/21 Last Taken Unknown] calcium carbonate-vitamin D3 600 mg calcium-200 unit capsule 1 cap PO BID cap 02/20/18 [History Confirmed 02/23/21 Last Taken Unknown] omega 8-eyd-xcv-fish oil 1,000 mg (120 mg-180 mg) capsule 1 cap PO DAILY 02/20/18 [History Confirmed 02/23/21 Last Taken Unknown] cholecalciferol (vitamin D3) 50 mcg (2,000 unit) capsule 2,000 unit PO QDAY 06/24/19 [History Confirmed 02/23/21 Last Taken Unknown] apple cidar vinegar pills 1,200 mg PO DAILY 08/13/19 [History Confirmed 02/23/21 Last Taken Unknown] nystatin 100,000 unit/gram topical powder 1 applic TOPICAL BIDP PRN #60 g 08/20/19 [Rx Confirmed 02/23/21 Last Taken Unknown] gabapentin 100 mg capsule See Rx Instructions PO BID #270 cap 03/04/20 [Rx Confirmed 02/23/21 Last Taken Unknown] Diabetic shoes with inserts #1 ea 03/19/20 [Rx Confirmed 02/23/21 Last Taken Unknown] blood sugar diagnostic #100 each 04/21/20 [Rx Confirmed 02/23/21 Last Taken Unknown] lancets #100 each 04/21/20 [Rx Confirmed 02/23/21 Last Taken Unknown] fluticasone propionate 110 mcg/actuation HFA aerosol inhaler 2 puff INHALATION BID #36 g 05/18/20 [Rx Confirmed 02/23/21 Last Taken Unknown] hydrocodone 5 mg-acetaminophen 325 mg tablet 1 tab PO Q6H PRN #120 tab 05/18/20 [Rx Confirmed 02/23/21 Last Taken Unknown] spironolactone 25 mg tablet 12.5 mg PO QDAY #90 tab 05/18/20 [Rx Confirmed 02/23/21 Last Taken Unknown] albuterol sulfate 90 mcg/actuation aerosol inhaler 2 puff INHALATION QDAY PRN #18 g 09/01/20 [Rx Confirmed 02/23/21 Last Taken Unknown] magnesium oxide 400 mg (241.3 mg magnesium) tablet 400 mg PO BID #180 tab 10/28 [Rx Confirmed 02/23/21 Last Taken Unknown] nitroglycerin 0.6 mg/hr transdermal 24 hour patch 1 patch TRANSDERMAL Q24H ea 12/09/20 [History Confirmed 02/23/21 Last Taken Unknown] diclofenac sodium 1 % topical gel 2 g TOPICAL QID 12/18/20 [History Confirmed 02/23/21 Last Taken Unknown] sertraline 25 mg tablet 25 mg PO .Q Hs #90 tab 01/06/21 [Rx Confirmed 02/23/21 Last Taken Unknown] omeprazole 20 mg capsule,delayed release 20 mg PO BID #180 cap 01/18/21 [Rx Confirmed 02/23/21 Last Taken Unknown] ranolazine 500 mg tablet,extended release,12 hr 500 mg PO BID #60 tab 01/18/21 [Rx Confirmed 02/23/21 Last Taken Unknown] potassium chloride 40 mEq/15 mL oral liquid See Rx Instructions .ROUTE .COMPLEX #473 ml 02/16/21 [Rx Confirmed 02/23/21 Last Taken Unknown] enalapril maleate 5 mg tablet 5 mg PO HS #90 tab 02/18/21 [Rx Confirmed 02/23/21 Last Taken Unknown] furosemide 20 mg tablet 20 mg PO DAILY tab 02/18/21 [History Confirmed 02/23/21 Last Taken Unknown] Adult Probiotic 1 cap PO DAILY 02/23/21 [History Confirmed 02/23/21 Last Taken Unknown] Miralax 1 dose PO PRN PRN 02/23/21 [History Confirmed 02/23/21 Last Taken Unknown] atorvastatin [Lipitor] 40 mg PO QHS #30 tab 02/24/21 [Rx Last Taken Unknown] clopidogrel 75 mg PO DAILY #30 tab 02/24/21 [Rx Last Taken Unknown] COURSE Hospital Course Hospital course: History of present illness: Ms. Lynch is a 85 year old F Patient presents to the ED with right-sided weakness difficulty expressing herself. Last seen normal yesterday. The time she arrived in the ED she still has some speech problems mild that eventually resolved and her weakness had essentially resolved. And during the ED stay all symptoms had resolved. CTA head neck showed close to 50% on the right carotid but otherwise unremarkable. No recent illnesses. 02/24 Patient doing well. No new issues. Wanting go home A: *TIA: -Patient does take aspirin at home, switched to plavix -echo pending *h/o CAD & CHF: *copd: *HTN: *Depression/anxiety: *GERD: *Chronic pain Discharge diagnosis: TIA Secondary discharge diagnosis: COPD hypertension depression anxiety GERD chronic pain CAD and CHF Time Spent with Patient Time attestation: Total time spent providing and/or coordinating discharge services: Time spent: Greater than 30 minutes EXAM Constitutional Vitals: Temp Pulse Resp BP Pulse Ox 97.5 F 78 20 172/68 96 02/23/21 08:57 02/23/21 08:57 02/23/21 08:57 02/23/21 11:30 02/23/21 09:52 Discharge Data Data Completed and Pending Labs on day of discharge: Labs from last 24 hours 02/23/21 02/23/21 02/23/21 10:46 09:13 09:13 WBC 5.0 RBC 4.34 Hgb 12.9 Hct 40.0 MCV 92.2 MCH 29.7 MCHC 32.3 RDW 13.2 Plt Count 237 MPV 9.7 Neut % (Auto) 57.7 Lymph % (Auto) 28.9 [place] % (Auto) 7.2 Eos % (Auto) 5.4 Baso % (Auto) 0.8 Lymph # (Auto) 1.45 L [place] # (Auto) 0.36 Eos # (Auto) 0.27 Baso # (Auto) 0.04 Absolute Neutrophils 2.89 POC PT 12.8 PT 12.8 POC INR 1.1 INR 0.9 APTT 35.7 Sodium Potassium Chloride Carbon Dioxide Anion Gap BUN Creatinine POC Creatinine GFR Calculation Glucose Calcium Total Bilirubin AST ALT Alkaline Phosphatase Troponin T Total Protein Albumin Globulin Albumin/Globulin Ratio Urine Color Straw Urine Appearance Clear Urine pH 8.0 Ur Specific [place] 1.015 Urine Protein Negative Urine Glucose (UA) Negative Urine Ketones Negative Urine Occult Blood Negative Urine Nitrate Negative Urine Bilirubin Negative Urine Urobilinogen Negative Ur Leukocyte Esterase Negative Ur Culture Indicated? No 02/23/21 02/23/21 09:12 09:12 WBC RBC Hgb Hct MCV MCH MCHC RDW Plt Count MPV Neut % (Auto) Lymph % (Auto) [place] % (Auto) Eos % (Auto) Baso % (Auto) Lymph # (Auto) [place] # (Auto) Eos # (Auto) Baso # (Auto) Absolute Neutrophils POC PT PT POC INR INR APTT Sodium 134 Potassium 4.4 Chloride 101 Carbon Dioxide 24 Anion Gap 9.0 BUN 12 Creatinine 0.7 POC Creatinine 0.8 GFR Calculation 79 Glucose 117 H Calcium 9.0 Total Bilirubin 0.4 AST 23 ALT 13 Alkaline Phosphatase 80 Troponin T < 0.01 Total Protein 6.7 Albumin 3.9 Globulin 2.8 Albumin/Globulin Ratio 1.4 Urine Color Urine Appearance Urine pH Ur Specific [place] Urine Protein Urine Glucose (UA) Urine Ketones Urine Occult Blood Urine Nitrate Urine Bilirubin Urine Urobilinogen Ur Leukocyte Esterase Ur Culture Indicated? Discharge Plan Patient/Caregiver Discharge Instructions Activity: increase activity as tolerated Instructions: Atorvastatin (By mouth), Clopidogrel (By mouth), Transient Ischemic Attack (GEN) Prescriptions: New clopidogrel 75 mg Tablet 75 mg PO DAILY Qty: 30 RF: 0 atorvastatin [Lipitor] 40 mg tablet 40 mg PO QHS Qty: 30 RF: 0 Continued cholecalciferol (vitamin D3) 2,000 unit capsule 2,000 unit PO QDAY RF: 0 nystatin 100,000 unit/gram powder 1 applic TOPICAL BIDP PRN (Reason: Rash) Qty: 60 RF: 6 gabapentin 100 mg capsule See Rx Instructions PO BID Qty: 270 RF: 4 hydrocodone-acetaminophen [[place]] 5-325 mg tablet 1 tab PO Q6H PRN (Reason: pain) Qty: 120 RF: 0 spironolactone 25 mg tablet 12.5 mg PO QDAY Qty: 90 RF: 4 (DME) Diabetic shoes with inserts Qty: 1 RF: 0 (DME) Accu-Chek SmartView Test Strip Strip See Rx Instructions .ROUTE .MEDSUPPLY Qty: 100 RF: 5 (DME) lancets [Accu-Chek Fastclix Lancet Drum] Misc See Rx Instructions .ROUTE .MEDSUPPLY Qty: 100 RF: 4 Flovent HFA 110 mcg/actuation HFA aerosol inhaler 2 puff INHALATION BID Qty: 36 RF: 4 albuterol sulfate [ProAir HFA] 90 mcg/actuation HFA aerosol inhaler 2 puff INHALATION QDAY PRN (Reason: shortness of breath) Qty: 18 RF: 6 ranolazine 500 mg tablet extended release 12 hr 500 mg PO BID Qty: 60 RF: 5 omeprazole 20 mg capsule,delayed release(DR/EC) 20 mg PO BID Qty: 180 RF: 4 potassium chloride 40 mEq/15 mL liquid See Rx Instructions .ROUTE .COMPLEX Qty: 473 RF: 3 multivitamin tablet 1 tab PO QDAY RF: 0 polyethylene glycol 3350 [Miralax] 17 gram/dose powder 17 g PO QHS PRN (Reason: Constipation) RF: 0 carboxymethylcellulose sodium [Refresh Tears] 0.5 % drops 1 drp OPHTHALMIC QID PRN (Reason: Dry Eyes) RF: 0 docusate sodium 300 mg PO QDAY RF: 0 epinephrine [EpiPen 2-Dave] 0.3 mg/0.3 mL auto-injector 0.3 mg IM PRN PRN (Reason: ALLERGIES) RF: 0 calcium carbonate-vitamin D3 [Calcium 600 + D(3)] 600 mg calcium- 200 unit capsule 1 cap PO BID RF: 0 nitroglycerin 0.6 mg/hr patch 24 hour 1 patch transdermal Q24H RF: 0 diclofenac sodium [Arthritis Pain (diclofenac)] 1 % gel 2 g topical QID RF: 0 alpha lipoic acid 300 mg capsule 300 mg PO QDAY RF: 0 Bifidobacterium infantis [Align] 4 mg capsule 4 mg PO QDAY RF: 0 omega 9-bws-ccm-fish oil [Fish Oil] 1,000 mg (120 mg-180 mg) capsule 1 cap PO DAILY RF: 0 apple cidar vinegar pills 1,200 mg PO DAILY RF: 0 magnesium oxide 400 mg (241.3 mg magnesium) tablet 400 mg PO BID Qty: 180 RF: 3 sertraline 25 mg tablet 25 mg PO .Q Hs Qty: 90 RF: 4 furosemide 20 mg tablet 20 mg PO DAILY RF: 0 enalapril maleate [Vasotec] 5 mg tablet 5 mg PO HS Qty: 90 RF: 4 Adult Probiotic 1 cap PO DAILY RF: 0 Discontinued aspirin 81 mg tablet,delayed release (DR/EC) 81 mg PO QDAY RF: 0 aspirin 81 mg Tablet 81 mg PO DAILY RF: 0 No Action Miralax 1 dose PO PRN PRN (Reason: Constipation) RF: 0 Follow Up Plan Follow up with: Raleigh Castro MD [Primary Care Provider] - Patient Disposition: Home Health Service Prognosis: Fair Discharge Orders: Discharge Order (Routine); Ordered 02/24/21 Ordered By: Humble Sutton
[2021-02-23] MEDS ORDERED: MAGNESIUM SULFATE 2 GM/50 ML BAG IV PRN (12:55)
[2021-02-23] MEDS ORDERED: SENNOSIDES 1 TABLET PO PRN (12:55)
[2021-02-23] MEDS ORDERED: ACETAMINOPHEN 325 MG TABLET PO PRN (12:55)
[2021-02-23] MEDS ORDERED: POTASSIUM CHLORIDE 20 MEQ TABLET PO PRN ×2 (12:55)
[2021-02-23] MEDS ORDERED: IPRATROPIUM/ALBUTEROL 3 ML AMPUL.NEB NEB PRN (12:55)
[2021-02-23] MEDS ORDERED: ONDANSETRON 4 MG/2 ML VIAL IV PRN (12:55)
[2021-02-23] MEDS ORDERED: 0.9 % SODIUM CHLORIDE 500 ML IV SCH (12:55)
[2021-02-23] MEDS ORDERED: POTASSIUM CHLORIDE 40 MEQ in DEXTROSE 5% IN WATER 500 ML IV PRN (12:55)
[2021-02-23] MEDS: 0.9 % SODIUM CHLORIDE 10 ML SYRINGE IV SCH ×2 (13:31→22:08)
[2021-02-23 13:39] LABS: Hemoglobin A1C 5.9 % Hgb (4.0-6.0)
[2021-02-23] MEDS ORDERED: HYDROcodone/APAP 5/325MG TABLET PO PRN (19:10)
[2021-02-23] MEDS ORDERED: LABETALOL 5 MG/ML ML IV PRN (19:13)
[2021-02-23] MEDS ORDERED: CARBOXYMETHYLCELLULOSE SODIUM 1 EACH DROPER.GEL OU PRN (19:24)
[2021-02-23] MEDS ORDERED: POLYETHYLENE GLYCOL 3350 17 GM PACKET PO PRN (19:28)
[2021-02-23] MEDS: CALCIUM W/VIT D3 500 MG TABLET PO SCH (20:13)
[2021-02-23] MEDS: OMEPRAZOLE 20 MG CAPSULE PO SCH (20:14)
[2021-02-23] MEDS: FLUTICASONE HFA 110MCG INHALER INH SCH (20:15)
[2021-02-23] MEDS: DOCUSATE SODIUM 100 MG CAPSULE PO SCH (20:15)
[2021-02-23] MEDS ORDERED: GABAPENTIN 100 MG CAPSULE PO SCH (21:00)
[2021-02-23] MEDS ORDERED: LISINOPRIL 5 MG TABLET PO SCH (21:00)
[2021-02-23] MEDS ORDERED: SERTRALINE 50 MG TABLET PO SCH (21:00)
[2021-02-23] MEDS ORDERED: ATORVASTATIN 40 MG TABLET PO SCH (21:00)
[2021-02-24] MEDS: 0.9 % SODIUM CHLORIDE 10 ML SYRINGE IV SCH (05:05)
[2021-02-24] MEDS ORDERED: CARBOXYMETHYLCELLULOSE SODIUM 1 EACH DROPER.GEL OU PRN (06:15)
[2021-02-24] MEDS ORDERED: POLYETHYLENE GLYCOL 3350 17 GM PACKET PO PRN (06:15)
[2021-02-24] MEDS: OMEPRAZOLE 20 MG CAPSULE PO SCH (07:24)
[2021-02-24] MEDS: CALCIUM W/VIT D3 500 MG TABLET PO SCH (08:08)
[2021-02-24] MEDS: FLUTICASONE HFA 110MCG INHALER INH SCH (08:08)
[2021-02-24] MEDS: DOCUSATE SODIUM 100 MG CAPSULE PO SCH (08:08)
[2021-02-24] MEDS ORDERED: ENOXAPARIN 40 MG/0.4 ML SYRINGE SQ SCH (09:00)
[2021-02-24] MEDS ORDERED: GABAPENTIN 100 MG CAPSULE PO SCH (09:00)
[2021-02-24] MEDS ORDERED: CLOPIDOGREL 75 MG TABLET PO SCH (09:00)
[2021-02-24] MEDS ORDERED: FUROSEMIDE 20 MG TABLET PO SCH (09:00)
[2021-02-24] MEDS ORDERED: NITROGLYCERIN 0.6 MG/HR PATCH TD SCH (10:00)
--- NOTE | 2021-02-25 14:37 | EKG ---
[facility] Test Date: 2021-02-23 Pat Name: Manisha Lynch Department: ED Room: Gender: Female Search Analyst: MARILU : [id number] Requested By: Albert Branch Order Number: [id number] Reading MD: Nate Orellana M.D. 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 /[facility] [place]/[id number]
== END 2021-02-24 12:00 | disposition home health service (06) ==
LOC: ICU 08:56 → ED 08:56
PROVIDERS: ADMIT Internal Medicine; ATTEND Internal Medicine